=== PATIENT | female | born 1995 | race Caucasian/White ===

== ENCOUNTER → 2019-08-28 11:32 | Outpatient (BNVA) | payer SELFPAY | PROVIDERS: Family Provider Nurse Practitioner; PCP Nurse Practitioner; Visit Provider Nurse Practitioner Family | DX: E11.69 Type 2 diabetes mellitus with other specified complication (principal); R00.2 Palpitations | CPT/HCPCS: 80053; 80061; 83036; 84443; 85025 ==

== ENCOUNTER → 2019-09-04 15:05 | Outpatient (BNVA) | payer SELFPAY | PROVIDERS: Family Provider Nurse Practitioner; PCP Nurse Practitioner; Visit Provider Nurse Practitioner Family | DX: D64.9 Anemia, unspecified (principal); F41.8 Other specified anxiety disorders; E55.9 Vitamin D deficiency, unspecified; N92.1 Excessive and frequent menstruation with irregular cycle; E28.2 Polycystic ovarian syndrome; E11.69 Type 2 diabetes mellitus with other specified complication | CPT/HCPCS: 36415; 80053; 81001; 82306; 82607; 82746; 83540 ==

== ENCOUNTER → 2019-10-01 10:59 | Outpatient (BNVA) | payer OTHER, SELFPAY | PROVIDERS: Family Provider Nurse Practitioner; PCP Nurse Practitioner; Visit Provider Nurse Practitioner Family | DX: Z11.59 Encounter for screening for other viral diseases (principal); F41.8 Other specified anxiety disorders | CPT/HCPCS: 87635 ==

== ENCOUNTER → 2020-11-09 14:19 | Outpatient (BNVA) | payer MEDICAID, SELFPAY | PROVIDERS: Family Provider Nurse Practitioner; PCP Nurse Practitioner Family; Visit Provider Nurse Practitioner Family | DX: E11.69 Type 2 diabetes mellitus with other specified complication (principal); I10 Essential (primary) hypertension; D64.9 Anemia, unspecified; Z13.6 Encounter for screening for cardiovascular disorders; E55.9 Vitamin D deficiency, unspecified; R07.9 Chest pain, unspecified; E28.2 Polycystic ovarian syndrome; N80.9 Endometriosis, unspecified | CPT/HCPCS: 80053; 80061; 81003; 82306; 82607; 82728; 83036; 83550; 84439; 84443; 84481; 85025 ==

== ENCOUNTER → 2020-11-18 09:54 | Day surgery (SDC) | payer MEDICAID, SELFPAY ==
[2020-11-18 10:05] VITALS: BMI 51.3
[2020-11-18] MEDS: ferric carboxy (IVPB) 750 MG in sodium chloride 0.9% (100 ml) 100 ML 345 MG IV (10:23)
[2020-11-18 10:33] VITALS: BP 150/79; PULSE 80; RESP 18; TEMP 36.5; O2SAT 99
== END ==
PROVIDERS: PCP Nurse Practitioner Family; Visit Provider Nurse Practitioner Family
DX: D50.9 Iron deficiency anemia, unspecified (principal); K90.9 Intestinal malabsorption, unspecified
CPT/HCPCS: 96365; J1439

== ENCOUNTER → 2020-11-25 13:08 | Day surgery (SDC) | payer MEDICAID, SELFPAY ==
[2020-11-25 13:16] VITALS: BP 163/91; PULSE 68; RESP 16; TEMP 36.3; O2SAT 97
[2020-11-25] MEDS: ferric carboxy (IVPB) 750 MG in sodium chloride 0.9% (100 ml) 100 ML 345 MG IV (14:11)
== END ==
PROVIDERS: PCP Nurse Practitioner Family; Visit Provider Nurse Practitioner Family
DX: D50.9 Iron deficiency anemia, unspecified (principal); K90.9 Intestinal malabsorption, unspecified
CPT/HCPCS: 96365; J1439

== ENCOUNTER → 2021-08-10 13:58 | Outpatient (BNVA) | payer MEDICAID, SELFPAY | PROVIDERS: PCP Nurse Practitioner Family; Visit Provider Nurse Practitioner | DX: D64.9 Anemia, unspecified (principal); I10 Essential (primary) hypertension; E11.69 Type 2 diabetes mellitus with other specified complication; D50.9 Iron deficiency anemia, unspecified; F41.8 Other specified anxiety disorders | CPT/HCPCS: 80053; 83036; 84443; 85025 ==

== ENCOUNTER → 2021-10-13 11:19 | Outpatient (BNVA) | payer MEDICAID, SELFPAY | PROVIDERS: PCP Nurse Practitioner Family; Visit Provider Nurse Practitioner | DX: N92.1 Excessive and frequent menstruation with irregular cycle (principal) | CPT/HCPCS: 85025 ==

== ENCOUNTER → 2022-05-23 13:18 | Outpatient (BNVA) | payer MEDICAID, SELFPAY | PROVIDERS: PCP Nurse Practitioner Family; Visit Provider Obstetrics & Gynecology | DX: E28.2 Polycystic ovarian syndrome (principal) | CPT/HCPCS: 83036; 83525; 84443; 85025 ==

== ENCOUNTER → 2022-06-08 14:58 | Outpatient (BNVA) | payer MEDICAID, SELFPAY | PROVIDERS: PCP Nurse Practitioner Family; Visit Provider Obstetrics & Gynecology | DX: N93.9 Abnormal uterine and vaginal bleeding, unspecified (principal); E28.2 Polycystic ovarian syndrome | CPT/HCPCS: 76830; 84443 ==

== ENCOUNTER 2022-08-02 08:43 | Day surgery (SDC) | payer MEDICAID, SELFPAY ==
[2022-08-01 11:45] VITALS: BMI 53.9
[2022-08-02] VITALS (10 sets, daily range): BP systolic 114–149; BP diastolic 64–125; PULSE 70–97; RESP 14–18; TEMP 36.2–36.4; O2SAT 93–100
[2022-08-02] MEDS: sodium chloride 0.9% 1,000 ML 30 ML IV (09:00)
[2022-08-02 09:43] LABS: OR HCG Qualitative Urine Negative (Negative)
--- NOTE | 2022-08-02 09:44 | W.PM.OPSUD ---
Surgery/Procedure H&P Update DATE OF PROCEDURE: August 02, 2022 DATE H&P PERFORMED: 07/29/22 H&P UPDATE INFORMATION: I have reviewed H&P completed within last 30 days, I have examined patient prior to procedure and No changes to prior documentation PREOP DIAGNOSIS: AUB, anemia PLANNED PROCEDURE: Operation Date: 08/02/22 10:15 Proposed Procedures p Hysteroscopy, dilation and curettage with Myosure [id number], N93.9(Not Applicable) - Shanell Romero MD s Dilation And Curettage (D&C)(Not Applicable) - Shanell Romero MD Related Problem List Diagnoses (1) Abnormal uterine bleeding (AUB):
[2022-08-02] MEDS: ceFAZolin 3,000 MG in sodium chloride 0.9% (100 ml) 100 ML 200 MG IV (10:06)
--- NOTE | 2022-08-02 11:19 | PM.OP ---
Operative Report Date of procedure: August 02, 2022 Pre-op diagnosis: Preop Diagnosis AUB, anemia Post-op diagnosis: same Post-op findings: 7 week sized uterus with excessive tissue. Procedure done: hysteroscopy, dilation and curettage with myosure Specimens removed/disposition: endometrial curettings to pathology Surgeon: Shanell Romero Anesthesia: General Estimated blood loss (mL): 2 IV fluids (mL): 500 Complications: none Findings: 7 week sized uterus with excessive tissue 315 ml of hysteroscopy deficit Condition: stable Disposition: PACU Procedure: The patient was taken to the operating room where monitored anesthesia was administered and to be adequate. She was prepped and draped in the normal sterile fashion in the dorsal lithotomy position in Glenn stirps. A weighted speculum was placed into the vagina and the anterior lip of the cervix grasped with a single-tooth tenaculum. The uterus was sounded to 7 cm. The cervix was dilated to 16 [place]. The hysteroscope was advanced into the endometrial cavity. There was excessive tissue visualized. The MyoSure device was activated and the tissue was removed. Pictures were taken pre and post procedure. All instruments were removed. The patient tolerated the procedure well. Sponge lap and needle counts were correct x3. She was taken to the recovery room in stable condition.
--- NOTE | 2022-08-02 11:20 | ANES.PREANE2 ---
Pre-Anesthetic Assessment Height/Weight: Height 1.73 m Weight 161.025 kg Temp Pulse Resp BP Pulse Ox O2 Del Method 97.5 F L 97 18 149/125 97 Room Air 08/02/22 09:05 08/02/22 09:05 08/02/22 09:05 08/02/22 09:05 08/02/22 09:05 08/02/22 09:07 Preop Diagnosis: AUB, anemia Operation Date: 08/02/22 10:15 Proposed Procedures p Hysteroscopy, dilation and curettage with Myosure 11927,[id number], N93.9(Not Applicable) - Shanell Romero MD s Dilation And Curettage (D&C)(Not Applicable) - Shanell Romero MD Familial anesthetic complications: none Was Beta Bryon taken within 24 hours: Yes Was Clonidine taken within 24 hours: N/A Last intake: Intake Last Liquid Date 08/01/22 Last Liquid Time 22:00 Last Solid Date 08/01/22 Last Solid Time 20:00 Social Tobacco and No alcohol Exam alert, oriented x 3 and regular rate & rhythm Airway Submandibular: within normal limits Cervical ROM: within normal limits Mallampati: Class II Dentition: full CV/HEM Anemia and Hypertension Metabolic Diabetes Mellitus and Morbid Obesity PCOS Neuropsych Anxiety and Depression Anesthetic Plan ASA status: 3 Anesthesia: General Medications/Allergies Home Medications Medication Instructions Recorded Confirmed Last Taken Type metoprolol tartrate 50 mg tablet 50 mg PO BID 30 days #60 tabs 08/12/21 08/01/22 08/01/22 Rx buspirone 5 mg tablet 5 mg PO BID 05/23/22 08/01/22 08/01/22 History ferrous sulfate 325 mg (65 mg 325 mg PO DAILY 05/23/22 08/01/22 08/01/22 History iron) tablet prazosin 1 mg capsule 1 mg PO BID 05/23/22 08/01/22 08/01/22 History sertraline 100 mg tablet 100 mg PO DAILY 05/23/22 08/01/22 08/01/22 History trazodone 50 mg tablet 25 mg PO DAILY 05/23/22 08/01/22 08/01/22 History Allergies Allergy/AdvReac Type Severity Reaction Status Date / Time amoxicillin AdvReac Diarrhea Verified 07/29/22 07:56 PENDING SALE TO [facility] Anesthesia Medical History Anemia Chest pain Depression with anxiety Endometriosis Essential hypertension Hypertension screen Iron deficiency anemia Malabsorption Metrorrhagia PCOS (polycystic ovarian syndrome) Vitamin D deficiency Family History Family/Other Breast cancer maternal aunt Colon cancer maternal aunt Heart disease maternal aunt Father Diabetes Hypertension Mother Hypertension Heart disease Grandmother Heart disease maternal Grandfather Heart disease maternal Denies family history of Ovarian cancer Hypercholesteremia Uterine cancer Thyroid disease Stroke Female Reproductive History Date of last menstrual period: 06/04/22 Data Anesthesia Cardiac Studies: No Data to Display
--- NOTE | 2022-08-02 11:28 | PM.DCS ---
Discharge Providers Date of Admission: 08/02/22 Date of Discharge: August 02, 2022 Attending Provider at Admission: Nick Attending Provider at Discharge: Shanell Romero MD Primary Care Provider: Kinsey Griggs Diagnoses at Discharge Discharge Diagnosis (1) Abnormal uterine bleeding (AUB): Status: Acute Reason for Visit Reason for Visit: [id number]; N93.9 Hospital Course Hospital Course The patient was admitted for surgery. She did well postoperatively and was ready for discharge. Discharge Data Studies Completed and Pending Pending at discharge Category Date Time Status Pathology: Surgical [PTH] Routine Pth 08/02/22 10:45 Ordered Laboratory Results Urine HCG, Qual Negative (Negative) 08/02/22 08:57 Vitals Last Vital Signs Temp 97.2 F L 08/02/22 11:24 Pulse 76 08/02/22 11:24 Resp 18 08/02/22 11:24 BP 124/82 08/02/22 11:24 Pulse Ox 97 08/02/22 11:24 O2 Del Method Room Air 08/02/22 11:24 O2 Flow Rate 3 08/02/22 11:09 Discharge Plan Discharge Patient Disposition: Home Condition: Stable Prescriptions: Continued buspirone 5 mg tablet 5 mg PO BID ferrous sulfate 325 mg (65 mg iron) tablet 325 mg PO DAILY sertraline 100 mg tablet 100 mg PO DAILY prazosin 1 mg capsule 1 mg PO BID trazodone 50 mg tablet 25 mg PO DAILY metoprolol tartrate 50 mg tablet 50 mg PO BID 30 Days Qty: 60 5RF Discharge Orders: Discharge Order (Routine); Ordered 08/02/22 Ordered By: Shanell Romero Discharge Attestations Time Spent in Discharge Care*: less than 30 min Quality Metrics Clinical Quality Measures [ No reported AMI, CVA or VTE this stay] Coding Level of Care Code Acute Code for Chg Fwd Diagnoses Abnormal uterine bleeding (AUB) N93.9
--- NOTE | 2022-08-02 14:43 | ANE.PACU2 ---
Inpatient post-anesthesia follow up: Airway intact: Yes Vital signs: Temperature 97.2 F Pulse Rate 72 Respiratory Rate 18 Blood Pressure 126/78 Pulse Oximetry 95 Oxygen Delivery Me thod Room Air Oxygen Flow Rate 3 Fraction of Inspir ed Oxygen Hydration adequate: Yes Nausea and vomiting: No Pain level: 3 Mental status: Baseline
== END 2022-08-02 12:10 | disposition home or self-care (01) ==
PROVIDERS: PCP Nurse Practitioner Family; Visit Provider Obstetrics & Gynecology
PROC: 0UDB8ZZ Extraction of Endometrium, Via Natural or Artificial Opening Endoscopic (ICD-10-PCS; CPT 58558; principal; 2022-08-02 10:05)
PROC: (CPT 58120; 2022-08-02 10:05)
DX: N93.9 Abnormal uterine and vaginal bleeding, unspecified (principal); D64.9 Anemia, unspecified; I10 Essential (primary) hypertension; E66.01 Morbid (severe) obesity due to excess calories; Z68.43 Body mass index [BMI] 50.0-59.9, adult; E28.2 Polycystic ovarian syndrome; F41.9 Anxiety disorder, unspecified; F32.A Depression, unspecified
CPT/HCPCS: 58558; 81025; 84703; 88305; J0330; J0690; J1100; J2405; J2704; J3010; J7030

== ENCOUNTER → 2022-08-18 14:20 | Outpatient (BNVA) | payer MEDICAID, SELFPAY | PROVIDERS: PCP Nurse Practitioner Family; Visit Provider Obstetrics & Gynecology | DX: Z01.419 Encounter for gynecological examination (general) (routine) without abnormal findings (principal) | CPT/HCPCS: 88175 ==

== ENCOUNTER 2023-10-14 21:49 | Emergency (ER) | payer MEDICAID, SELFPAY ==
[2023-10-14 21:50] VITALS: BP 167/83; PULSE 77; RESP 16; TEMP 36.7; O2SAT 98; BMI 56.5
--- NOTE | 2023-10-14 21:56 | XRR_ITS ---
PROCEDURE INFORMATION: Exam: XR Chest Exam date and time: 10/14/2023 10:02 PM Age: 28 years old Clinical indication: Chest pressure; Patient HX: Chest pain; HTN; SOB TECHNIQUE: Imaging protocol: Radiologic exam of the chest. Views: 1 view. COMPARISON: No relevant prior studies available. FINDINGS: Lungs: The lungs are adequately expanded. No focal consolidations or pulmonary edema. Pleural spaces: No pleural effusions or pneumothorax. Heart/Mediastinum: No cardiomegaly. Bones/joints: No acute fractures. XR/XR chest 1V portable [id number] IMPRESSION: No acute pulmonary disease.
--- NOTE | 2023-10-14 21:57 | ECG_ITS ---
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 Measurements Intervals [place] Rate: 70 P: 40 OR: 186 QRS: 60 QRSD: 101 T: 52 QT: 380 QTc: 413 Interpretive Statements SINUS RHYTHM No previous ECG available for comparison Electronically Signed On 10-15-2023 7:58:41 CDT by Eleuterio Fabian M.D. [email or web address]
[2023-10-14 21:58] VITALS: BP 167/83; PULSE 71; RESP 18; TEMP 36.4; O2SAT 98
[2023-10-14 22:03] LABS: Basophils # 0.1 10^3/uL (0.0-0.1); Basophils % 0.8 %; Eosinophils # 0.2 10^3/uL (0.0-0.8); Eosinophils % 1.8 %; Lymphocytes # 3.7 10^3/uL (0.8-4.8); Lymphocytes % 30.7 %; Mean Corpuscular HGB Conc 30.8 g/dL (30-55); Mean Corpuscular Hemoglobin 24.9 pg (27-33); Mean Corpuscular Volume 80.7 fl (85-98); Mean Platelet Volume 11.4 fL (7.4-10.4); Monocytes # 0.5 10^3/uL (0.2-0.9); Monocytes % 4.3 %; Neutrophils # 7.42 10^3/uL (1.8-7.7); Nucleated Red Blood Cells % 0 %; Platelet Count 274 10^3/cmm (157-399); Red Blood Count 4.46 10^6/uL (3.85-5.65); Red Cell Distribution Width 15.9 % (12.1-15.1); White Blood Count 11.98 10^3/uL (3.29-11.43)
[2023-10-14] MEDS: ketorolac 30 mg/mL INJ 15 MG IVP (22:07)
[2023-10-14 22:27] LABS: Troponin(5th) Baseline < 6 ng/L (0-10)
[2023-10-14 22:30] LABS: Alanine Aminotransferase 21 U/L (0-33); Alkaline Phosphatase 98 U/L (35-105); Aspartate Amino Transferase 16 U/L (0-32); Blood Urea Nitrogen 8 mg/dL (6-20); Calcium 8.5 mg/dL (8.5-10.5); Carbon Dioxide 19 mmol/L (22-29); Chloride 105 mmol/L (98-107); Creatinine Clr Calc Pharmacy 199.9094; Globulin 3.1 g/dL (1.3-4.6); Glomerular Filtration Rate 99.6 mL/min (90-130); Glucose 101 mg/dL (65-115); Osmolality Calculated 284 mOsm/kg (285-295); Sodium 138 mmol/L (136-145); Total Bilirubin 0.3 mg/dL (0.15-1.2); Total Protein 7.1 g/dL (6.6-8.7)
[2023-10-14 22:46] VITALS: BP 151/82; PULSE 69; RESP 16; O2SAT 97
--- NOTE | 2023-10-14 23:26 | W.ED.CHESTPA ---
HPI - Chest Pain General: Chief Complaint: Chest Pain Stated Complaint: cp, sob, nausea, htn Time Seen by Provider: 10/14/23 21:50 History of Present Illness: Patient presents emerged part with complaint of chest pain. Patient was arguing with her boyfriend when the pain started. She states this started mid sternum and radiated to her back. She states pain has improved significantly since it started. She was given aspirin and nitro by EMS. Patient with no history of cardiac disease. [facility] ED PFSH: Medical History Iron deficiency anemia Endometriosis Essential hypertension PCOS (polycystic ovarian syndrome) Depression with anxiety Family History Family/Other Breast cancer maternal aunt Colon cancer maternal aunt Heart disease maternal aunt Father Diabetes Hypertension Mother Hypertension Heart disease Grandmother Heart disease maternal Grandfather Heart disease maternal Denies family history of Ovarian cancer Hypercholesteremia Uterine cancer Thyroid disease Stroke Female Reproductive History: Date of last menstrual period: 09/30/23 Physical Exam Chest: COMMONS NORMALS: normal inspection of the chest and normal palpation of entire chest wall Resp: COMMON NORMALS: normal respiratory effort Cardio: COMMON NORMALS: regular rate and regular rhythm RATE: regular rate RHYTHM: regular rhythm GI: COMMON NORMALS: Normal to inspection, nondistended, normoactive bowel sounds present and non-tender Course Vital Signs: Vital signs: Vital Signs Temperature 97.6 F 10/14/23 21:58 Pulse Rate 69 10/14/23 22:46 Respiratory Rate 16 10/14/23 22:46 Blood Pressure 151/82 10/14/23 22:46 Pulse Oximetry 97 10/14/23 22:46 Oxygen Delivery Me thod Room Air 10/14/23 22:46 MDM - Chest Pain Medical Decision Making Patient with no significant abnormality noted on labs or imaging. Troponin is negative x 2. EKG with nonspecific ST and T wave changes. Chest x-ray with no acute disease. Patient is PERC negative so doubt PE. Patient's pain has improved and patient was very few risk factors other than being overweight for ACS. Suspect patient's pain secondary to anxiety from when she was arguing with her boyfriend. Discussed with patient to follow-up with PCP. Lab Data 10/14/23 21:00 10/14/23 21:00 Radiology Impressions Chest X-Ray 10/14/23 21:56 IMPRESSION: No acute pulmonary disease. Laboratory Results WBC 11.98 10^3/uL (3.29-11.43) H 10/14/23 21:00 RBC 4.46 10^6/uL (3.85-5.65) 10/14/23 21:00 Hgb 11.10 g/dL (11.27-16.99) L 10/14/23 21:00 Hct 36.0 % (36-47) 10/14/23 21:00 MCV 80.7 fl (85-98) L 10/14/23 21:00 MCH 24.9 pg (27-33) L 10/14/23 21:00 MCHC 30.8 g/dL (30-55) 10/14/23 21:00 RDW 15.9 % (12.1-15.1) H 10/14/23 21:00 Plt Count 274 10^3/cmm (157-399) 10/14/23 21:00 MPV 11.4 fL (7.4-10.4) H 10/14/23 21:00 Neut % (Auto) 62.0 % 10/14/23 21:00 Lymph % (Auto) 30.7 % 10/14/23 21:00 [place] % (Auto) 4.3 % 10/14/23 21:00 Eos % (Auto) 1.8 % 10/14/23 21:00 Baso % (Auto) 0.8 % 10/14/23 21:00 Neut # (Auto) 7.42 10^3/uL (1.8-7.7) 10/14/23 21:00 Lymph # (Auto) 3.7 10^3/uL (0.8-4.8) 10/14/23 21:00 [place] # (Auto) 0.5 10^3/uL (0.2-0.9) 10/14/23 21:00 Eos # (Auto) 0.2 10^3/uL (0.0-0.8) 10/14/23 21:00 Baso # (Auto) 0.1 10^3/uL (0.0-0.1) 10/14/23 21:00 Nucleated RBC % (auto) 0 % 10/14/23 21:00 Nucleated RBCs # 0.0 /100WBC 10/14/23 21:00 Sodium 138 mmol/L (136-145) 10/14/23 21:00 Potassium 4.0 mmol/L (3.5-5.1) 10/14/23 21:00 Chloride 105 mmol/L (98-107) 10/14/23 21:00 Carbon Dioxide 19 mmol/L (22-29) L 10/14/23 21:00 Anion Gap 18.0 (5-19) 10/14/23 21:00 BUN 8 mg/dL (6-20) 10/14/23 21:00 Creatinine 0.7 mg/dL (0.5-0.9) 10/14/23 21:00 GFR Calculation 99.6 mL/min (90-130) 10/14/23 21:00 Glucose 101 mg/dL (65-115) 10/14/23 21:00 Calculated Osmolality 284 mOsm/kg (285-295) L 10/14/23 21:00 Calcium 8.5 mg/dL (8.5-10.5) 10/14/23 21:00 Total Bilirubin 0.3 mg/dL (0.15-1.2) 10/14/23 21:00 AST 16 U/L (0-32) 10/14/23 21:00 ALT 21 U/L (0-33) 10/14/23 21:00 Alkaline Phosphatase 98 U/L (35-105) 10/14/23 21:00 Troponin T Baseline < 6 ng/L (0-10) 10/14/23 21:00 Troponin T 120 Minute 6.00 ng/L (0-10) 10/14/23 23:43 Delta Troponin T 0.80602 ABS# (0-10) 10/14/23 23:43 Total Protein 7.1 g/dL (6.6-8.7) 10/14/23 21:00 Albumin 4.0 g/dL (3.5-5.2) 10/14/23 21:00 Globulin 3.1 g/dL (1.3-4.6) 10/14/23 21:00 All radiology interpretation(s) finalized by discharge Discharge Plan Discharge Patient Disposition: Home Clinical Impression: Atypical chest pain Condition: Stable Prescriptions: No Action buspirone 5 mg tablet 5 mg PO BID ferrous sulfate 325 mg (65 mg iron) tablet 325 mg PO DAILY sertraline 100 mg tablet 100 mg PO DAILY prazosin 1 mg capsule 1 mg PO BID trazodone 50 mg tablet 25 mg PO DAILY metoprolol tartrate 50 mg tablet 50 mg PO BID 30 Days Qty: 60 5RF medroxyprogesterone [Provera] 10 mg tablet 10 mg PO DAILY Qty: 10 12RF metronidazole 500 mg tablet 500 mg PO BID Qty: 14 0RF cephalexin 500 mg capsule 500 mg PO TID Qty: 30 0RF Discharge Orders: Discharge ED (Routine); Ordered 10/15/23 Ordered By: Horacio Kelley Referrals: Kinsey Griggs [Primary Care Provider] - Discharge Diet: Usual diet Discharge Activity: Resume usual activity Patient Instructions: Opioid Safety, Pain Management Activity Restrictions/Additional Instructions: Follow-up with primary care physician for further evaluation and treatment. Coding Level of Care Code ED Hot Car Operator for Aydin Ybarra
[2023-10-15 00:04] LABS: Troponin 5 2HR Delta 0.00001 ABS# (0-10)
[2023-10-15 00:44] VITALS: BP 90/65; PULSE 64; RESP 17; O2SAT 97
[2023-10-15 00:45] VITALS: BP 90/65; PULSE 64; RESP 17; TEMP 36.4; O2SAT 97
== END 2023-10-15 00:56 | disposition home or self-care (01) ==
PROVIDERS: Emergency Provider Emergency Medicine; PCP Nurse Practitioner Family
DX: R07.89 Other chest pain (principal); I10 Essential (primary) hypertension
CPT/HCPCS: 36415; 71045; 80053; 84484; 85025; 93005; 96374; 99285; J1885

== ENCOUNTER 2024-02-16 11:32 | Emergency (ER) | payer MEDICAID, SELFPAY ==
--- NOTE | 2024-02-16 11:33 | USR_ITS ---
PROCEDURE INFORMATION: Exam: US Abdomen; Limited Exam date and time: 02/16/2024 11:59 AM Age: 29 years old Clinical indication: Abdominal pain; Generalized; Additional info: Be here ( pain TECHNIQUE: Imaging protocol: Real time ultrasound of the abdomen with image documentation. Limited exam focused on the region of clinical interest. COMPARISON: US transvaginal [id number] 06/08/2022 3:07 PM FINDINGS: There is diffuse hepatic echogenicity present corresponding to hepatic steatosis.. The liver span is 18 cm consistent with hepatomegaly. No focal hepatic lesions are present. Gallbladder shows multiple mobile shadowing gallstones. GB wall 3 mm. Common bile duct 6 mm. The right kidney does not show focal abnormality. Right kidney measures 12.4 cm x 6.4 cm x 5.6 cm US/US gall bladder [id number] IMPRESSION: 1. Hepatomegaly and hepatic steatosis. 2. Cholelithiasis 3. Otherwise negative sonogram
[2024-02-16 11:46] VITALS: BP 172/107; PULSE 89; RESP 17; TEMP 36.7; O2SAT 97; BMI 56.2
--- NOTE | 2024-02-16 14:38 | W.ED.ABDPA2 ---
HPI - Abdominal Pain General: Chief Complaint: Abdominal Pain Stated Complaint: gallbladder removal (doc reff), sever pain Time Seen by Provider: 02/16/24 14:12 History of Present Illness: 29-year-old female presents emergency room with complaints of right upper quadrant abdominal pain intermittent for the last 2 months she has not noticed anything that he exacerbates or relieves it. She had a ultrasound done she has a written report with her was done at an outside clinic they states she had acute cholecystitis based on that ultrasound of the dilation or common bile duct and cholelithiasis. Ultrasound done here today does not have a similar finding we do not see the bile duct as dilated there is no sign of acute cholecystitis on the ultrasound done today but there are gallstones which were also seen on the previous ultrasound. She has not had any fever sweats chills she does have some diarrhea associated with these episodes. Nurse practitioner that she sees told her that she was sent to the emergency room to have her gallbladder removed. Associated Symptoms: Denies chills, dysuria and fever(s) Related Data Date of Last Menstrual Period: 01/11/24 Home Medications Medication Instructions Recorded Confirmed buspirone 5 mg tablet 5 mg PO BID 05/23/22 08/18/22 ferrous sulfate 325 mg (65 mg 325 mg PO DAILY 05/23/22 08/18/22 iron) tablet prazosin 1 mg capsule 1 mg PO BID 05/23/22 08/18/22 sertraline 100 mg tablet 100 mg PO DAILY 05/23/22 08/18/22 trazodone 50 mg tablet 25 mg PO DAILY 05/23/22 08/18/22 Previous Rx's Medication Instructions Recorded metoprolol tartrate 50 mg tablet 50 mg PO BID 30 days #60 tabs 08/12/21 cephalexin 500 mg capsule 500 mg PO TID #30 caps 08/11/22 medroxyprogesterone 10 mg tablet 10 mg PO DAILY #10 tabs 08/11/22 (Provera) metronidazole 500 mg tablet 500 mg PO BID #14 tabs 08/11/22 hydrocodone 5 mg-acetaminophen 325 1 tab PO Q6H PRN pain #20 tabs 02/16/24 mg tablet promethazine 25 mg tablet 25 mg PO Q6H PRN nausea and 02/16/24 vomiting #20 tabs Allergies Allergy/AdvReac Type Severity Reaction Status Date / Time amoxicillin AdvReac Diarrhea Verified 08/18/22 13:45 Review of Systems Const: Denies: fever(s) or chills Card: Denies: chest pain Resp: Denies: dyspnea GI: Denies: abdominal pain : Denies: dysuria, urinary frequency or urinary urgency Musc: Denies: neck pain or back pain Skin/Breast: Denies: rash PFSH ED PFSH: Medical History Iron deficiency anemia Endometriosis Essential hypertension PCOS (polycystic ovarian syndrome) Depression with anxiety Family History Family/Other Breast cancer maternal aunt Colon cancer maternal aunt Heart disease maternal aunt Father Diabetes Hypertension Mother Hypertension Heart disease Grandmother Heart disease maternal Grandfather Heart disease maternal Denies family history of Ovarian cancer Hypercholesteremia Uterine cancer Thyroid disease Stroke Female Reproductive History: Date of last menstrual period: 01/11/24 Physical Exam Const: COMMON NORMALS: no acute distress GENERAL APPEARANCE: cooperative and comfortable ORIENTATION/CONSCIOUSNESS: Yes awake, Yes oriented to person, Yes oriented to place and Yes oriented to time HENMT: COMMON NORMALS: normocephalic, atraumatic and hearing grossly normal bilaterally HEAD & SCALP: normocephalic and atraumatic Resp: COMMON NORMALS: normal respiratory effort, No retractions, No use of accessory muscles and clear to auscultation bilaterally AUSCULTATION: clear to auscultation bilaterally Cardio: COMMON NORMALS: regular rate, regular rhythm and No murmurs present (Cardio) RATE: regular rate RHYTHM: regular rhythm GI: COMMON NORMALS: Soft to palpation and No hepatosplenomegaly present AUSCULTATION: Yes normoactive bowel sounds PALPATION: Yes Soft to palpation, No Tenderness to palpation present (GI), No Guarding due to palpation present (GI) and Yes No hepatosplenomegaly present Extremity: COMMON NORMALS: normal to inspection, capillary refill normal, no clubbing, cyanosis or edema, no calf tenderness and no pedal edema Neuro: SENSORIUM/ORIENTATION: Yes oriented to person, Yes oriented to place and Yes oriented to time Skin: COMMON NORMALS: no rashes or lesions noted GENERAL SKIN EXAM: no rashes or lesions noted Course Vital Signs: Vital signs: Vital Signs Temperature 98.1 F 02/16/24 11:46 Pulse Rate 76 02/16/24 16:37 Respiratory Rate 17 02/16/24 11:46 Blood Pressure 151/97 02/16/24 16:37 Pulse Oximetry 96 02/16/24 16:37 Oxygen Delivery Me thod Room Air 02/16/24 15:20 MDM - Abdominal Pain Medical Decision Making Reviewed ultrasound shows cholelithiasis but no evidence of acute cholecystitis no leukocytosis no elevation of liver functions. Discussed with the patient what do believe her symptoms are suggestive of biliary colic and she likely will need cholecystectomy at this point is not emergent. Will discharge patient home discussed dietary adjustments to avoid exacerbating but her symptoms. Hydrocodone and promethazine given make appointment for follow-up with general surgery. If symptoms change develops fever or persistent nausea vomiting return Medical Records I reviewed the patient's medical records. Lab Data I reviewed the patient's lab results. 02/16/24 14:28 02/16/24 14:28 Labs/Radiology: Radiology Impressions Gallbladder Ultrasound 02/16/24 11:33 IMPRESSION: 1. Hepatomegaly and hepatic steatosis. 2. Cholelithiasis 3. Otherwise negative sonogram Laboratory Results WBC 10.52 10^3/uL (3.29-11.43) 02/16/24 14:28 RBC 5.29 10^6/uL (3.85-5.65) 02/16/24 14:28 Hgb 12.30 g/dL (11.27-16.99) 02/16/24 14:28 Hct 42.1 % (36-47) 02/16/24 14:28 MCV 79.6 fl (85-98) L 02/16/24 14:28 MCH 23.3 pg (27-33) L 02/16/24 14:28 MCHC 29.2 g/dL (30-55) L 02/16/24 14:28 RDW 16.1 % (12.1-15.1) H 02/16/24 14:28 Plt Count 264 10^3/cmm (157-399) 02/16/24 14:28 MPV 10.9 fL (7.4-10.4) H 02/16/24 14:28 Neut % (Auto) 61.1 % 02/16/24 14:28 Lymph % (Auto) 31.8 % 02/16/24 14:28 Mellette % (Auto) 3.6 % 02/16/24 14:28 Eos % (Auto) 2.3 % 02/16/24 14:28 Baso % (Auto) 0.7 % 02/16/24 14:28 Neut # (Auto) 6.43 10^3/uL (1.8-7.7) 02/16/24 14:28 Lymph # (Auto) 3.4 10^3/uL (0.8-4.8) 02/16/24 14:28 Mellette # (Auto) 0.4 10^3/uL (0.2-0.9) 02/16/24 14:28 Eos # (Auto) 0.2 10^3/uL (0.0-0.8) 02/16/24 14:28 Baso # (Auto) 0.1 10^3/uL (0.0-0.1) 02/16/24 14:28 Nucleated RBC % (auto) 0 % 02/16/24 14:28 Nucleated RBCs # 0.0 /100WBC 02/16/24 14:28 Sodium 137 mmol/L (136-145) 02/16/24 14:28 Potassium 3.8 mmol/L (3.5-5.1) 02/16/24 14:28 Chloride 102 mmol/L (98-107) 02/16/24 14:28 Carbon Dioxide 25 mmol/L (22-29) 02/16/24 14:28 Anion Gap 13.8 (5-19) 02/16/24 14:28 BUN 8 mg/dL (6-20) 02/16/24 14:28 Creatinine 0.7 mg/dL (0.5-0.9) 02/16/24 14:28 GFR Calculation 98.9 mL/min (90-130) 02/16/24 14:28 Glucose 90 mg/dL (65-115) 02/16/24 14:28 Calculated Osmolality 282 mOsm/kg (285-295) L 02/16/24 14:28 Calcium 9.0 mg/dL (8.5-10.5) 02/16/24 14:28 Total Bilirubin 0.6 mg/dL (0.15-1.2) 02/16/24 14:28 AST 18 U/L (0-32) 02/16/24 14:28 ALT 18 U/L (0-33) 02/16/24 14:28 Alkaline Phosphatase 95 U/L (35-105) 02/16/24 14:28 Total Protein 7.4 g/dL (6.6-8.7) 02/16/24 14:28 Albumin 3.9 g/dL (3.5-5.2) 02/16/24 14:28 Globulin 3.5 g/dL (1.3-4.6) 02/16/24 14:28 Lipase 30 U/L (13-60) 02/16/24 14:28 HCG, Qual Negative (Negative) 02/16/24 14:28 Urine Color Yellow (Yellow) 02/16/24 15:32 Urine Appearance Clear (CLEAR) 02/16/24 15:32 Urine pH 6.5 (5-7) 02/16/24 15:32 Ur Specific [place] 1.019 (1.005-1.030) 02/16/24 15:32 Urine Protein Negative (Negative) 02/16/24 15:32 Urine Glucose (UA) Negative (Normal) 02/16/24 15:32 Urine Ketones Negative (Negative) 02/16/24 15:32 Urine Blood Negative (Negative) 02/16/24 15:32 Urine Nitrate Negative (Negative) 02/16/24 15:32 Urine Bilirubin Negative (Negative) 02/16/24 15:32 Urine Urobilinogen 1.0 mg/dL (Negative) 02/16/24 15:32 Ur Leukocyte Esterase Negative (Negative) 02/16/24 15:32 Urine RBC 0-2 /hpf (0-2) 02/16/24 15:32 Urine WBC 0-5 /hpf (0-5) 02/16/24 15:32 Ur Squamous Epith Cells 6-10 /hpf (0-5) 02/16/24 15:32 Amorphous Sediment Not Reportable 02/16/24 15:32 Urine Bacteria 1+ /hpf (NONE) H 02/16/24 15:32 Hyaline Casts 1.65 /lpf 02/16/24 15:32 All radiology interpretation(s) finalized by discharge Discharge Plan Discharge Patient Disposition: Home Clinical Impression: Cholelithiasis Condition: Stable Prescriptions: New hydrocodone-acetaminophen 5-325 mg tablet 1 tab PO Q6H PRN (Reason: pain) Qty: 20 0RF promethazine 25 mg tablet 25 mg PO Q6H PRN (Reason: nausea and vomiting) Qty: 20 0RF No Action buspirone 5 mg tablet 5 mg PO BID ferrous sulfate 325 mg (65 mg iron) tablet 325 mg PO DAILY sertraline 100 mg tablet 100 mg PO DAILY prazosin 1 mg capsule 1 mg PO BID trazodone 50 mg tablet 25 mg PO DAILY metoprolol tartrate 50 mg tablet 50 mg PO BID 30 Days Qty: 60 5RF medroxyprogesterone [Provera] 10 mg tablet 10 mg PO DAILY Qty: 10 12RF metronidazole 500 mg tablet 500 mg PO BID Qty: 14 0RF cephalexin 500 mg capsule 500 mg PO TID Qty: 30 0RF Discharge Orders: Discharge ED (Routine); Ordered 02/16/24 Ordered By: Julito Lujan Referrals: Kinsey Griggs [Primary Care Provider] - Discharge Diet: As Directed Discharge Activity: Increase activity as tolerated Patient Instructions: Cholelithiasis, Biliary Colic (ED), Gallstones (ED), Opioid Safety, Pain Management Activity Restrictions/Additional Instructions: Thank you for choosing [facility] for your healthcare needs today. It is very important that you follow up as instructed or that you return to the Emergency Department should you have concerns or if your condition changes or worsens in any way. You are seen in the emergency room with right upper quadrant abdominal pain ultrasound does show that you have gallbladder stones your history is consistent with biliary colic. Your liver functions and your white count are normal however there is no sign of acute cholecystitis. Suspect that ultimately you will need to have a cholecystectomy which is not urgent or emergent at this time. Will make arrangements for you to follow-up with general surgery so they can review this with you and look at treatment options. Coding Level of Care Code ED Optical Glass Wet Inspector for Aydin Ybarra
[2024-02-16 14:43] LABS: Basophils # 0.1 10^3/uL (0.0-0.1); Basophils % 0.7 %; Eosinophils # 0.2 10^3/uL (0.0-0.8); Eosinophils % 2.3 %; Hematocrit 42.1 % (36-47); Lymphocytes # 3.4 10^3/uL (0.8-4.8); Lymphocytes % 31.8 %; Mean Corpuscular HGB Conc 29.2 g/dL (30-55); Mean Corpuscular Hemoglobin 23.3 pg (27-33); Mean Corpuscular Volume 79.6 fl (85-98); Mean Platelet Volume 10.9 fL (7.4-10.4); Monocytes # 0.4 10^3/uL (0.2-0.9); Monocytes % 3.6 %; Neutrophils # 6.43 10^3/uL (1.8-7.7); Neutrophils % 61.1 %; Nucleated Red Blood Cells % 0 %; Platelet Count 264 10^3/cmm (157-399); Red Blood Count 5.29 10^6/uL (3.85-5.65); Red Cell Distribution Width 16.1 % (12.1-15.1); White Blood Count 10.52 10^3/uL (3.29-11.43)
[2024-02-16 15:02] LABS: Alanine Aminotransferase 18 U/L (0-33); Albumin Level 3.9 g/dL (3.5-5.2); Alkaline Phosphatase 95 U/L (35-105); Anion Gap 13.8 (5-19); Aspartate Amino Transferase 18 U/L (0-32); Blood Urea Nitrogen 8 mg/dL (6-20); Carbon Dioxide 25 mmol/L (22-29); Chloride 102 mmol/L (98-107); Creatinine Clr Calc Pharmacy 197.4453; Globulin 3.5 g/dL (1.3-4.6); Glomerular Filtration Rate 98.9 mL/min (90-130); Glucose 90 mg/dL (65-115); HCG, Serum Qual Negative (Negative); Lipase 30 U/L (13-60); Osmolality Calculated 282 mOsm/kg (285-295); Potassium 3.8 mmol/L (3.5-5.1); Sodium 137 mmol/L (136-145); Total Bilirubin 0.6 mg/dL (0.15-1.2); Total Protein 7.4 g/dL (6.6-8.7)
[2024-02-16 15:20] VITALS: BP 153/106; PULSE 80; O2SAT 91
[2024-02-16 15:39] LABS: Bilirubin Urine Negative (Negative); Blood Urine Negative (Negative); Glucose Urine UA Negative (Normal); Ketones Urine Negative (Negative); Leukocyte Esterase Urine Negative (Negative); Nitrate Urine Negative (Negative); Protein Urine Negative (Negative); Specific Gravity, Urine 1.019 (1.005-1.030); Urine Appearance Clear (CLEAR); Urine Color Yellow (Yellow); pH Urine 6.5 (5-7)
[2024-02-16 15:44] LABS: Add Urine Microscopic? YES; Bacteria Urine 1+ /hpf; Hyaline Casts Urine 1.65 /lpf; RBC Urine 0-2 /hpf (0-2); WBC Urine 0-5 /hpf (0-5)
[2024-02-16 16:37] VITALS: BP 151/97; PULSE 76; O2SAT 96
== END 2024-02-16 16:38 | disposition home or self-care (01) ==
PROVIDERS: Emergency Medicine; Emergency Provider Family Medicine; PCP Nurse Practitioner Family
DX: K80.20 Calculus of gallbladder without cholecystitis without obstruction (principal)
CPT/HCPCS: 36415; 76705; 80053; 81001; 83690; 84703; 85025; 99284

== ENCOUNTER 2024-11-20 16:56 | Emergency (ER) | payer MEDICAID, SELFPAY ==
--- OUTSIDE RECORDS SUMMARY | 2024-11-13 10:00 | XMS_ITS | Encounter Summary ---
Author Organization [facility] Address [address] [place] [address] Care Team Providers Care Dump Attendant Name Role Phone Xenia Iverson MD Primary Care Provider [phone] Reason for Visit * Reason Comments Dental Pain Right side Encounter Details Date Type Department Care Team ([facility] st Contact Info) Description 11/13/2024 10:00 AM CDT Office Visit [facility] Medicine [address] [phone] Beth Calderon FNP [address] [place] [phone] Dental infection (Primary Dx); Wheezing; Declined influenza vaccine Social History Tobacco Use Types Packs/Day Years Used Date Smoking Tobacco: Every Day Cigarettes 1 13.7 Started: 03/13/2015; Last attempted to quit: 07/14/2014 Smokeless Tobacco: Never Tobacco Cessation:Ready to Q uit: No; Counseling Given: Yes Alcohol Use Standard Drinks/Week Comments Not Currently 0 (1 standard drink = 0.6 oz pur e alcohol) Feeling Safe Answer Date Recorded Are you in a relationship wi th someone who hurts you emotionally and/or physically? No 08/13/2024 Food Insecurity Answer Date Recorded Patient needs follow up regardin 07/03/2024 Transportation Needs Answer Date Record ed Patient needs follow up regardin 07/03/2024 Housing Stability Answer Date Recorded Social/Environmental Concerns No concerns Utility Needs Answer Date Recorded Patient needs follow up regardin 07/03/2024 Comments No Sex and Gender Information Value Date Recorded Sex Assigned at Not on file Legal Sex Female 2:20 AM FAMILY SOCIOLOGIST Gender Identity Not on file Sexual Orientation Not on file documented as of this encounter Last Filed Vital Signs Vital Sign Reading Time Taken Comments Blood Pressure 132/80 11/13/2024 10:03 AM CDT Pulse 90 11/13/2024 10:03 AM CDT Temperature 36.4 C (97.6 F) 11/13/2024 10:03 AM CDT Respiratory Rate 20 11/13/2024 10:0 3 AM CDT Oxygen Saturation 97% 11/13/2024 10: 03 AM CDT Inhaled Oxygen Concentration - - Weight 177.3 kg (390 lb 12.8 oz) 2024 10:03 AM CDT Height 172.7 cm (5' 8 ) 11/13/2024 10:0 3 AM CDT Body Mass Index 59.42 11/13/2024 10:03 AM CDT documented in this encounter Progress Notes * Beth Calderon FNP - 11/13/2024 10:35 AM CDT HISTORY OF PRESENT ILLNESS: Chief Complaint Patient presents with Dental Pain Right side Subjective History of Present Illness The patient is a 29-year-old female who presents to the clinic for concerns of dental infection. She has been experiencing mouth pain for approximately a week, which has escalated to include headaches, earaches, and facial swelling. The discomfort is so intense that it disrupts her sleep. She also reports two broken teeth. Despite attempts to alleviate the pain with Tylenol and ibuprofen, she has found no relief. She has not yet scheduled a dentist appointment due to difficulties in finding one that accepts her insurance. Over the weekend, she attended a family reunion but was unable to participate due to the pain. Additionally, she mentions that she has run out of her albuterol inhaler and does not have any refills left. She has started experiencing wheezing again. Sleep: Reports disrupted sleep due to pain PAST SURGICAL HISTORY: Gallbladder surgery REVIEW OF SYSTEMS Review of Systems Constitutional: Negative for activity change, appetite change and fever. HENT: Positive for dental problem, ear pain, facial swelling and sinus pain. Gastrointestinal: Negative for abdominal pain. Neurological: Positive for headaches. Negative for dizziness and light-headedness. Psychiatric/Behavioral: Positive for sleep disturbance. Objective PHYSICAL EXAM BP 132/80 Pulse 90 Temp 97.6 ??F (36.4 ??C) (Temporal) Resp 20 Ht 5' 8 (1.727 m) Wt (!) 177.3 kg (390 lb 12.8 oz) LMP 01/31/2024 (Approximate) SpO2 97% BMI 59.42 kg/m?? Physical Exam Vitals reviewed. Constitutional: General: She is not in acute distress. Appearance: Normal appearance. HENT: Head: Normocephalic and atraumatic. Right Ear: External ear normal. Left Ear: External ear normal. Eyes: Conjunctiva/sclera: Conjunctivae normal. Pulmonary: Effort: Pulmonary effort is normal. Musculoskeletal: General: Normal range of motion. Cervical back: Neck supple. Skin: General: Skin is warm. Findings: No rash. Neurological: Mental Status: She is alert and oriented to person, place, and time. Psychiatric: Mood and Affect: Mood normal. Behavior: Behavior normal. Results ASSESSMENT and PLAN: Orders Placed This Encounter ergocalciferol (VITAMIN D2) 50,000 unit capsule cephALEXin (KEFLEX) 500 mg capsule albuterol sulfate HFA 90 mcg/actuation aerosol inhaler Assessment & Plan 1. Dental infection: Acute. - Severe dental pain radiating to the head, ear, and face, accompanied by swelling and sleep disturbances. - Counseling on the use of clindamycin 300 mg four times daily for 10 days, with the option to reduce to three times daily if necessary. - Prescription for clindamycin 300 mg sent to pharmacy. - Encouraged to find a dentist who accepts her insurance to avoid recurrent antibiotic use. 2. Wheezing: Acute. - Refill for albuterol inhaler sent to pharmacy. Follow-up - Follow-up with a dentist to address dental issues and prevent recurrent antibiotic use. LARY Jones, 11/13/2024 10:49 AM The author of this note, patient (or authorized senior sales representative), and all other persons present consent to the audio recording of this visit for charting documentation purposes. This note was automatically generated by a Generative AI technology ([employer]), reviewed, edited, and finalized by LARY Jones. documented in this encounter Plan of Treatment Upcoming Encounters Date Type Department Care Team (Late st Contact Info) Description 11/27/2024 11:00 AM CDT Office Visit [facility] [address] [facility] [address] [place] [phone] Beth Calderon FNP [address] [facility] [place] [phone] Malu Moscoso DO [address] [facility] [address] [place] [phone] 11/29/2024 9:30 AM CDT Telemed [facility] [place] [address] [facility] [address] [place] [address] Marc Abdul MD [address] [facility] [place] [phone] 12/03/2024 9:40 AM CDT Office Visit [facility] [place] [address] [place] [address] [place] [phone] Beth Calderon FNP [address] [facility] [place] [phone] 12/16/2024 1:[address] [facility] [address] [facility] [address] [place] [address] Beth Calderon FNP [address] [facility] [place] [phone] 01/01/2025 9:00 AM CDT Office Visit [facility] [place] [address] [place] [address] [place] [phone] Beth Calderon, [facility] [address] [facility] [place] [phone] 01/14/2025 3:00 PM FAMILY SOCIOLOGIST Telemed [facility] [place] [address] [phone] Mouna Reagan NP [address] [place] [phone] documented as of this encounter Visit Diagnoses Diagnosis Dental infection- Primary Acute apical periodontitis of pulpal origin Wheezing Declined influenza vaccine Vaccination not carried out because of patient refusal documented in this encounter Additional Health Concerns Assessment Noted Time PHQ-9 Depression Total Score: 4 03/15/19 25 9:39 AM FAMILY SOCIOLOGIST documented as of this encounter Care Teams Dump Attendant Relationship Specialty Start Date End Date Xenia Iverson MD [address] [phone] PCP - General Family Practice 05/16/23 documented as of this encounter
--- OUTSIDE RECORDS SUMMARY | 2024-11-16 04:33 | XMS_ITS | Encounter Summary ---
Author Organization [facility] Address [address] [place] [address] Care Team Providers Care Transfer Table Operator Helper Name Role Phone Xenia Iverson MD Primary Care Provider [phone] Reason for Visit * Reason Comments Chest Pain Encounter Details Date Type Department Care Team ([facility] st Contact Info) Description 11/16/2024 4:33 AM CDT - 11/16/2024 7:55 AM CDT Emergency [facility] Emergency Medicine [address] [place] [address] Randolph Farooq MD [address] [place] [address] Shelton Bacon, [address] [place] [address] Chest pain, unspecified type (Primary Dx); HTN (hypertension), benign; Obesity (BMI 30.0-34.9) Discharge Disposition: Home or Self Care Social History Tobacco Use Types Packs/Day Years Used Date Smoking Tobacco: Every Day Cigarettes 1 13.7 Started: 03/13/2015; Last attempted to quit: 07/14/2014 Smokeless Tobacco: Never Alcohol Use Standard Drinks/Week Comments Not Currently 0 (1 standard drink = 0.6 oz pur e alcohol) Feeling Safe Answer Date Recorded Are you in a relationship wi th someone who hurts you emotionally and/or physically? No 11/16/2024 Food Insecurity Answer Date Recorded Patient needs follow up regardin 07/03/2024 Transportation Needs Answer Date Record ed Patient needs follow up regardin 07/03/2024 Housing Stability Answer Date Recorded Social/Environmental Concerns No concerns Utility Needs Answer Date Recorded Patient needs follow up regardin 07/03/2024 Comments No Sex and Gender Information Value Date Recorded Sex Assigned at Not on file Legal Sex Female 2:20 AM CONFLICT RESOLUTION PROFESSIONAL Gender Identity Not on file Sexual Orientation Not on file documented as of this encounter Last Filed Vital Signs Vital Sign Reading Time Taken Comments Blood Pressure 157/84 11/16/2024 7:45 AM CDT Pulse 70 11/16/2024 7:45 AM CDT Temperature 36.8 C (98.3 F) 11/16/2024 7:45 AM CDT Respiratory Rate 21 11/16/2024 7:45 AM CDT Oxygen Saturation 98% 11/16/2024 7:45 AM CDT Inhaled Oxygen Concentration - - Weight 177.4 kg (391 lb 3.2 oz) 11/16/2024 4:33 AM CDT Height 172.7 cm (5' 8 ) 11/16/2024 4:33 AM CDT Body Mass Index 59.48 11/16/2024 4:33 AM CDT documented in this encounter Discharge Instructions * Discharge Instructions* Shelton Bacon DO - 11/16/2024 7:45 AM CDT You have been diagnosed with chest pain. Please follow-up with your sales and service officer Monday. Call them to update them that your blood pressures were very labile and they went up and down often. Some of them were reassuring that others especially her initial 1 was rather elevated. They did seem to improve throughout your stay. They may want to adjust her medications. Please get an appointment with them this week to discuss your ER visit. Please return for persistent chest pain, pressure, shortness of breath especially was accompanied with palpitations dizziness lightheadedness or left-sided chest pain. If you are having lower extremity swelling please return. * Attachments The following attachments cannot be sent through Care Everywhere. * Hypertension (Georgian) * Chest Pain (Georgian) * BMI (Body Mass Index) (Georgian) documented in this encounter Medications at Time of Discharge ergocalciferol (VITAMIN D2) 50,000 unit capsule TAKE 1 CAPSULE BY MOUTH ON MONDAY AND MONDAY FOR 90 DAYS. RECHECK VITAMIN D PRIOR TO REFILL. 5 cephALEXin (KEFLEX) 500 mg capsuleIndications :Dental infection Take 1 Capsule (500 mg) by mouth 4 times daily for 10 days. 40 Capsule 5 11/24/19 25 albuterol sulfate HFA 90 mcg/actuation aerosol inhalerIndications :Wheezing Take 2 Puffs by inhalation every 4 hours as needed for Shortness of Breath or Wheezing. 8.5 Gram 3 5 cyanocobalamin (VITAMIN B-12) 1,000 mcg/mL Solution INJECT 1 ML ( 1,000 MCG ) INTRAMUSCULARLY EVERY 30 DAYS 1 mL 5 nicotine (NICODERM CQ) 21 mg/24 hr patchIndications:C igarette nicotine dependence, uncomplicated Apply 1 Patch to skin as directed every 24 hours. 14 Patch 5 mupirocin (BACTROBAN) 2 % Ointment APPLY TO AFFECTED AREA ONCE DAILY 5 potassium CHLORIDE (K-TAB) 20 mEq Extended Release tabletIndications: Localized edema Take 1 Tablet (20 mEq) by mouth daily with breakfast. 100 Tablet 3 5 ferrous gluconate 324 mg (38 mg iron) tablet Take 1 Tablet by mouth 2 times daily. 5 fluticasone propionate (FLONASE) 50 mcg/spray [place], Suspension nasal inhalerIndications :Environmental allergies Administer 2 Sprays in each nostril daily. 16 Gram 2 5 cetirizine (ZyrTEC) 10 mg tabletIndications: Environmental allergies Take 1 Tablet (10 mg) by mouth daily. 90 Tablet 1 5 budesonide-formote roL (SYMBICORT) 80-4.5 mcg/actuation HFA Aerosol InhalerIndications :Bronchitis Take 1 Puff by inhalation 2 times daily. 10.2 Gram 5 albuterol (PROVENTIL,VENTOLI N) 2.5 mg /3 mL (0.083 %) Solution for NebulizationIndica tions:Acute cough,Bronchitis Take 3 mL (2.5 mg) by inhalation every 6 hours as needed for Shortness of Breath or Wheezing. 320 mL 2 5 nebulizerIndicatio ns:Acute cough,Bronchitis Length of need 99 months Nebulizer with compressor, Kit: Disposable Nebulizer Kit, 2 per month, filters , areosol mask: No. Name of Medication: Albuterol 1 Each 5 busPIRone (BUSPAR) 7.5 mg TabletIndications: Generalized anxiety disorder Take 1 Tablet (7.5 mg) by mouth 3 times daily. 300 Tablet 3 5 famotidine (PEPCID) 40 mg tabletIndications: Gastroesophageal reflux disease, unspecified whether esophagitis present Take 1 Tablet (40 mg) by mouth 2 times daily. 200 Tablet 3 5 folic acid (FOLVITE) 1 mg tabletIndications: Moderate episode of recurrent major depressive disorder (CMS/HCC) Take 1 Tablet (1 mg) by mouth daily. 100 Tablet 3 5 furosemide (LASIX) 40 mg tabletIndications: Localized edema Take 1 Tablet (40 mg) by mouth daily. 100 Tablet 3 5 lamoTRIgine (LaMICtal) 25 mg tabletIndications: Generalized anxiety disorder,Moderate episode of recurrent major depressive disorder (CMS/HCC) Take 1 Tablet (25 mg) by mouth 2 times daily. 200 Tablet 3 5 medroxyPROGESTERon e (Provera) 10 mg tabletIndications: Dysfunctional uterine bleeding Take one tablet daily for 10 days every month 30 Tablet 3 5 metoprolol tartrate (LOPRESSOR) 50 mg tabletIndications: Essential hypertension Take 1 Tablet (50 mg) by mouth 2 times daily. 200 Tablet 3 5 sertraline (ZOLOFT) 100 mg tabletIndications: Generalized anxiety disorder,Moderate episode of recurrent major depressive disorder (CMS/HCC) TAKE 1 AND 1/2 TABLETS(150 MG) BY MOUTH DAILY 150 Tablet 3 5 documented as of this encounter ED Notes * Deysi Ruffin RN - 11/16/2024 7:32 AM CDT Provider at bedside. * Rekha Villar RN - 11/16/2024 4:37 AM CDT Nikia Rivera 29 y.o. female, arrived to the ED via TRANSPORTATION: private vehicle for complaints of chest pain. Per patient woke from sleep about 2 am having chest pain with SOB, mid sternum rates pain 7/10 constant sharp and throbbing , with SOB. Chief Complaint Patient presents with Chest Pain . Vitals taken, patient placed on monitor, clothing removed as needed per policy, privacy provided to patient. Respiratory: SOB, Cardiac/Circulatory: see note above, Skin: WDL - Normal color for ethnicity, skin intact, patient is Alert and Oriented x4, pain scale: 7/10, findings; bleeding: without any bleeding noted. Behavior during evaluation: appropriate. Belongings secured, patient Weapons assessment: denied possession of any weapons or firearms at this time. Patient comforted, all questionsanswered to the best of the staff's ability, education performed, and left patient in the room withthe call light in reach, bed in lowest position, wheels locked, side rails up. * Laurence Wilson RCP - 11/16/2024 4:33 AM CDT EKG completed. Results given to Dr. Farooq and scanned into [email or web address]. * Shelton Bacon DO - 11/16/2024 4:26 AM CDT HISTORY OF PRESENT ILLNESS This 29-year-old female with a history of depression, morbid obesity, PTSD and hypertension presents to the ER with chest pain that woke her up from sleep around 2 AM. It was associated with shortness of breath and patient reported that her heart was beating fast. At that time, her arms felt heavy.She waited, hoping the pain would go away. With time, the pain went into the neck and back. So she asked her boyfriend to bring her in for evaluation. Currently, pain is slightly better but has not completely resolved. She rates her pain at 4 out of 10. This has happened to her in the past and she was told it is due to anxiety. Review of records show that patient was recently started on Zepbound for morbid obesity. She was recently referred to pulmonology but has not been able to follow-up. She is being worked up for possible bariatric surgery. PAST MEDICAL HISTORY REVIEWED MEDICAL: Patient has a past medical history of Anxiety state, Depression, Endometriosis, HTN (hypertension),Hypothyroidism, PCOD (polycystic ovarian disease), and PUD (peptic ulcer disease). SURGICAL: Patient has a past surgical history that includes tonsillectomy; adenoidectomy; and pr laparoscopy surg cholecystectomy (N/A, 02/22/2024). ALLERGIES Amoxicillin PHYSICAL EXAM INITIAL VS BP: (!) 196/92 (11/16/24432), Heart Rate: 85 bpm (11/16/24432), Resp: 18 (11/16/24432), Pulse: 82 (11/16/24 0500), Temp: 97.2 ??F (36.2 ??C) (11/16/24432), Temp src: Temporal (11/16/24432),SpO2: 99 % (11/16/24432), Height: 5' 8 (172.7 cm) (11/16/24432), Weight: (!) 177.4 kg (391 lb 3.2 oz) (11/16/24432), BMI (Calculated): (!) 59.48 (11/16/24432) Patient's last menstrual periodwas 04/01/2024 (approximate). Physical Exam Vitals and nursing note reviewed. Constitutional: General: She is not in acute distress. Appearance: Normal appearance. She is morbidly obese. She is not toxic-appearing. HENT: Head: Normocephalic and atraumatic. Eyes: Extraocular Movements: Extraocular movements intact. Conjunctiva/sclera: Conjunctivae normal. Cardiovascular: Rate and Rhythm: Normal rate and regular rhythm. Pulses: Normal pulses. Heart sounds: No murmur heard. Pulmonary: Effort: Pulmonary effort is normal. No respiratory distress. Breath sounds: Normal breath sounds. No rhonchi or rales. Abdominal: General: Bowel sounds are normal. There is no distension. Palpations: Abdomen is soft. Tenderness: There is no abdominal tenderness. Musculoskeletal: Cervical back: Normal range of motion and neck supple. Right lower leg: No edema. Left lower leg: No edema. Skin: General: Skin is warm and dry. Neurological: General: No focal deficit present. Mental Status: She is alert and oriented to person, place, and time. Psychiatric: Behavior: Behavior normal. DIAGNOSTICS LAB: CBC WITH DIFFERENTIAL - Abnormal Result Value WBC 9.1 RBC 4.64 HEMOGLOBIN 11.1 (*) HEMATOCRIT 34.9 MCV 75.2 (*) MCH 23.9 (*) MCHC 31.8 (*) RDW 16.3 (*) RDW-STDEV 43.8 PLATELETS 230 MPV 10.8 NEUTROPHILS 64 LYMPHOCYTES 26 MONOCYTES 5 EOSINOPHILS 4 BASOPHILS 1 IMMATURE GRANULOCYTES 1 NEUTROPHIL ABSOLUTE 5.85 LYMPHOCYTE ABSOLUTE 2.32 MONOCYTE ABSOLUTE 0.45 (*) EOSINOPHIL ABSOLUTE 0.39 (*) BASOPHILS ABSOLUTE 0.05 IMMATURE GRANULOCYTES ABSOLUTE 0.05 COMPREHENSIVE METABOLIC PANEL - Abnormal SODIUM 138 POTASSIUM 3.8 CHLORIDE 106 CO2 23 CALCIUM 8.8 BUN 10 CREATININE 0.63 GLUCOSE 161 (*) TOTAL PROTEIN 6.9 ALBUMIN 3.8 BILIRUBIN TOTAL 0.3 ALKALINE PHOSPHATASE 117 (*) AST 22 ALT 25 GFR >60 ANION GAP 9 BRAIN NATRIURETIC PEPTIDE, BNP OR PROBNP - Abnormal PROBNP, N TERMINAL 430 (*) TROPONIN BASELINE, 5TH GEN - Normal TROPONIN T, BASELINE 5TH GEN <6 TROPONIN 2 HR, 5TH GEN - Normal TROPONIN T, 2 HR 5TH GEN <6 RADIOLOGY: No orders to display EKG: PROCEDURES Procedures MEDICAL DECISION MAKING AND PLAN OF CARE ED Course as of 11/16/24 0745 Sat Nov 16, [address] Bacon. [CN] 0777 CTA CHEST W AND/OR WO CONTRAST [] ED Course User Index [CN] Randolph Farooq MD [] Shelton Bacon DO Medical Decision Making Received this patient handoff from Dr. Farooq. Her workup was largely completed. Labs to include 2 negative troponins that were nondetectable along with chest x- ray and EKG were all accomplished. Patient is not having a STEMI. I have just taken his note over at the end of the workup waiting for CTA chest to return. CTA chest is negative for acute PE or dissection. No evidence of pneumonia or pneumothorax. I agree with Dr. Farooq's assessment and physical exam. I did do my own independent physicalexam and a brief interview with the patient and he states that her symptoms are greatly improved ifnot gone. She does have follow- up with cardiology and pulmonology which is pending. Discussed with her the risk benefits of being discharged to follow-up with her sales and service officer which she has agreed to. She does have some risk factors however given the fact that her chest pain is resolved we will discharge her at this time. Her blood pressure is still labile but has not had any severe range blood pressures since initial arrival. Most recent 1 at this time is 160/90. She does have blood pressure me dicine at home I have encouraged her to continue to take. I told her to call cardiology first thingMonday morning to update them that she is having intermittent chest pain still, and that her blood pressure is still somewhat labile and poorly controlled and to try to get in with them this week. I have given her very strict return precautions and said please return immediately for evaluation if she is having return of her chest pain or shortness of breath. Did briefly discussed with her transfer for her chest pain however she would like to follow-up outpatient. I did offer this to her as she does have some risk factors and discussed this with her however since she already has cardiology she would like to follow-up outpatient with them. Amount and/or Complexity of Data Reviewed Labs: ordered. Decision-making details documented in ED Course. Radiology: ordered. Decision-making details documented in ED Course. Details: No acute process ECG/medicine tests: ordered. Details: EKG initially interpreted by prior physician before shift change. On my read it is normal sinus rhythm of 84 bpm. Normal axis. Normal intervals. No LVH. No hyperacute T waves. No STEMI. Normal EKG. Risk OTC drugs. Prescription drug management. Clinical Scoring & Consults Medications Administered During the ED Stay from 11/16/2024 0426 to 11/16/2024 0745 Date/Time Order Dose Route Action 11/16/2024 0511 CDT aspirin (KALEN CHEWABLE) chewable tablet 324 mg 324 mg Oral Given 11/16/2024 0520 CDT nitroglycerin (NITROSTAT) tablet 0.4 mg 0.4 mg Sublingual Given 11/16/2024 0512 CDT nitroglycerin (NITROSTAT) tablet 0.4 mg 0.4 mg Sublingual Given 11/16/2024 0604 CDT iopamidoL (ISOVUE-300) 61% injection (single-use vial) 100 mL 100 mL IV Contrast Given . New Prescriptions for this Encounter LAST VS BP: (!) 153/80 (11/16/24714), Heart Rate: 85 bpm (11/16/24714), Resp: 20 (11/16/24714), Pulse: 78 (11/16/24714), Temp: 97.2 ??F (36.2 ??C) (11/16/24432), Temp src: Temporal (11/16/24432),SpO2: 96 % (11/16/24714) CLINICAL IMPRESSION Diagnoses Diagnosis Comment Added By Time Added Chest pain, unspecified type [R07.9] Shelton Bacon DO 11/16/2024 7:43 AM HTN (hypertension), benign [I10] Shelton Bacon DO 11/16/2024 7:43 AM Obesity (BMI 30.0-34.9) [E66.811] Shelton Bacon DO 11/16/2024 7:43 AM DISPOSITION, EDUCATION AND MEDICATION RECONCILIATION Medications reconciled. See after visit summary for patient education on discharged patients. ED Disposition ED Disposition Discharge Condition Stable User Shelton Bacon DO Date/Time Sat Nov 16, 2024 7:43 AM Comment -- ATTESTATION STATEMENTS Diagnoses Diagnosis Comment Added By Time Added Chest pain, unspecified type [R07.9] Shelton Bacon DO 11/16/2024 7:43 AM HTN (hypertension), benign [I10] Shelton Bacon DO 11/16/2024 7:43 AM Obesity (BMI 30.0-34.9) [E66.811] Shelton Bacon DO 11/16/2024 7:43 AM documented in this encounter Miscellaneous Notes * Gen AI BRIGID - GENERATIVE AI HANDOFF NOTE - 11/16/2024 8:28 AM CDT ## ER_course: ## # DIAGNOSIS: Chest pain, unspecified type; Hypertension (HTN), benign; Obesity (BMI 30.0-34.9). # The patient, a 29-year-old female, presented to the ED with chest pain that woke her from sleep, accompanied by shortness of breath and a sensation of fast heartbeats. The pain was initially rated at 7/10 and later decreased to 4/10. She has a history of anxiety, depression, morbid obesity, PTSD, and hypertension. # During the ER visit, the patient's blood pressure was initially high at 196/92, and her BMI was noted to be 59.48. The EKG showed normal sinus rhythm, and two troponin tests were negative, ruling out a STEMI. A CTA chest was negative for acute pulmonary embolism, dissection, pneumonia, or pneumothorax. The patient was administered aspirin and nitroglycerin during her stay. # Abnormal lab findings included a low hemoglobin of 11.1, low MCV of 75.2, low MCH of 23.9, low MCHC of 31.8, elevated RDW of 16.3, elevated glucose of 161, elevated alkaline phosphatase of 117, and elevated NT-proBNP of 430. # The patient was discharged with improved symptoms and advised to follow up with cardiology and pulmonology. ## Follow_up_orders: ## # The patient is advised to continue her blood pressure medication at home. # She is instructed to call her sales and service officer on Monday to update them on her intermittent chest pain and labile blood pressure, and to try to get an appointment within the week. # Strict return precautions were given, advising her to return immediately if chest pain or shortness of breath recurs. # Follow-up with cardiology and pulmonology is pending. ## Home_Situation: ## # No specific factors impairing follow-up care were noted in the ER documentation. The patient arrived via private vehicle, indicating some level of transportation access. documented in this encounter Plan of Treatment Upcoming Encounters Date Type Department Care Team (Late st Contact Info) Description 11/27/2024 11:00 AM CDT Office Visit [facility] [address] [place] [address] Beth Calderon FNP [address] [facility] [place] [address] Malu Moscoso DO [address] [place] [address] 11/29/2024 9:30 AM CDT Telemed [facility] [place] [address] [facility] [address] [place] [address] Marc Abdul MD [address] [facility] [place] [address] 12/03/2024 9:40 AM CDT Office Visit [facility] [place] [address] [place] [address] [place] [address] Beth Calderon FNP [address] [facility] [place] [address] 12/16/2024 1:[address] [facility] [address] [place] [address] Beth Calderon FNP [address] [facility] [place] [address] 01/01/2025 9:00 AM CDT Office Visit [facility] [place] [address] [address] [facility] [place] [address] Beth Calderon FNP [address] [facility] [place] [address] 01/14/2025 3:00 PM CONFLICT RESOLUTION PROFESSIONAL Telemed [facility] [place] [address] [place] [address] Mouna Reagan NP [address] [place] [address] documented as of this encounter Procedures Procedure Name Priority Date/Time Associated Diagnosis Comments TELEMETRY REPORT 11/18/2024 10:0 1 AM CDT TROPONIN 2 HR, 5TH GEN Timed Study 11/16/2024 6:30 AM CDT CTA CHEST W AND/OR WO CONTRAST Stat 11/16/2024 6:03 AM CDT XR CHEST PA OR AP 1 VW Stat 11/16/2024 5:35 AM CDT PULSE OXIMETRY, CONTINUOUS Stat 11/16/2024 5:07 AM CDT TROPONIN BASELINE, 5TH GEN Stat 11/16/2024 4:38 AM CDT CBC WITH DIFFERENTIAL Stat 11/16/2024 4:38 AM CDT BRAIN NATRIURETIC PEPTIDE, BNP OR PROBNP Stat 11/16/2024 4:38 AM CDT COMPREHENSIVE METABOLIC PANEL Stat 11/16/2024 4:38 AM CDT documented in this encounter Results * TELEMETRY REPORT (11/18/2024 10:01 AM CDT) us Provider Scanning ECG ORDERABLES Final Result * TROPONIN 2 HR, 5TH GEN (11/16/2024 6:30 AM CDT) TROPONIN T, 2 HR 5TH GEN <6 <=10 ng/L 11/16/2024 6:54 AM CDT [facility] Blood Venipuncture / Unknown 11/16/2024 6:30 AM CDT 11/16/2024 6:37 AM CDT Narrative [facility] - 11/16/2024 6:54 AM CDT Troponin Undetectable Delay in collection of timed specimen beyond recommended collection interval. Results must be interpreted in clinical context. Unable to calculate delta. Randolph Farooq MD CHEMISTRY ORDERABLES Final R esult [facility] CLIA # [id number] [address] [place] [id number] * CTA CHEST W AND/OR WO CONTRAST (11/16/2024 6:03 AM CDT) Anatomical Region Laterality Modality Chest Computed Tomogra phy 11/16/2024 5:37 AM CDT Impressions 11/16/2024 9:04 AM CDT IMPRESSION: No pulmonary embolus visualized. No focal infiltrates. Mildly enlarged bilateral hilar as well as mediastinal lymph nodes, nonspecific but favored to be reactive if the patient does not have history of malignancy 5 mm left apical pulmonary nodule. Low risk individuals with a nodule < 6mm do not require a routine follow up CT. High risk individuals can get an optional CT at 12 months. Nodules < 6 mm do not require routine follow-up, but certain patients at high risk with suspicious nodule morphology, upper lobe location, or both may warrant 12-month follow-up CT. These recommendations do not apply to patients with immunosuppression, or patients with known primary cancer. Fleischner Society guidelines 2017 Narrative 11/16/2024 9:04 AM CDT CTA CHEST W AND/OR WO CONTRAST; Reason For Exam: Pulmonary embolism (PE) suspected, high prob. Diagnosis: See Reason for Exam. COMPARISON: None. TECHNIQUE: During the administration of nonionic intravenous contrast, helical scanning was obtained of the chest. The patient tolerated the procedure and there were no immediate complications. Coronal, sagittal and MIP reformations were reconstructed. FINDINGS: PULMONARY ARTERIES: Good opacification of the pulmonary arteries are seen. No filling defects are seen. No pulmonary emboli are seen. PULMONARY INFARCTION: No infarction seen HEART: Heart size is within normal limits for age. RV/LV INDEX: RV/LV index is < 0.9 LUNGS: No focal consolidation. 5 mm left apical pulmonary nodule as noted on image 32 series 5. PLEURA: No pneumothorax or pleural effusion. LYMPH NODES: Mildly enlarged bilateral hilar as well as mediastinal lymph nodes are present. AORTA: Visualized portions of the aorta is within normal limits for age. OSSEOUS STRUCTURES: The visualized skeletal structures are intact. UPPER ABDOMEN: Hepatosplenomegaly is noted. Mild hepatic steatosis is suggested. Procedure Note Alli Rushing MD - 11/16/2024 CTA CHEST W AND/OR WO CONTRAST; Reason For Exam: Pulmonary embolism (PE) suspected, high prob. Diagnosis: See Reason for Exam. COMPARISON: None. TECHNIQUE: During the administration of nonionic intravenous contrast, helical scanning was obtained of the chest. The patient tolerated the procedure and there were no immediate complications. Coronal, sagittal and MIP reformations were reconstructed. FINDINGS: PULMONARY ARTERIES: Good opacification of the pulmonary arteries are seen. No filling defects are seen. No pulmonary emboli are seen. PULMONARY INFARCTION: No infarction seen HEART: Heart size is within normal limits for age. RV/LV INDEX: RV/LV index is < 0.9 LUNGS: No focal consolidation. 5 mm left apical pulmonary nodule as noted on image 32 series 5. PLEURA: No pneumothorax or pleural effusion. LYMPH NODES: Mildly enlarged bilateral hilar as well as mediastinal lymph nodes are present. AORTA: Visualized portions of the aorta is within normal limits for age. OSSEOUS STRUCTURES: The visualized skeletal structures are intact. UPPER ABDOMEN: Hepatosplenomegaly is noted. Mild hepatic steatosis is suggested. IMPRESSION: No pulmonary embolus visualized. No focal infiltrates. Mildly enlarged bilateral hilar as well as mediastinal lymph nodes, nonspecific but favored to be reactive if the patient does not have history of malignancy 5 mm left apical pulmonary nodule. Low risk individuals with a nodule < 6mm do not require a routine follow up CT. High risk individuals can get an optional CT at 12 months. Nodules < 6 mm do not require routine follow-up, but certain patients at high risk with suspicious nodule morphology, upper lobe location, or both may warrant 12-month follow-up CT. These recommendations do not apply to patients with immunosuppression, or patients with known primary cancer. Fleischner Society guidelines [address] ORDERABLES Final Result * XR CHEST PA OR AP 1 VW (11/16/2024 5:35 AM CDT) Anatomical Region Laterality Modality Chest Computed Radiogr aphy 11/16/2024 5:28 AM CDT Impressions 11/16/2024 10:24 AM CDT IMPRESSION: Unremarkable chest x-ray. Narrative 11/16/2024 10:24 AM CDT Exam: Radiographs: XR CHEST PA OR AP 1 VW Indication: Chest pain Comparison: Chest x-ray dated 05/07/2024 Procedure Note David Cummings MD - 11/16/2024 Exam: Radiographs: XR CHEST PA OR AP 1 VW Indication: Chest pain Comparison: Chest x-ray dated 05/07/2024 IMPRESSION: Unremarkable chest x-ray. us Randolph Farooq MD DIAGNOSTIC IMAGING ORDERABLE S Final Result * TROPONIN BASELINE, 5TH GEN (11/16/2024 4:38 AM CDT) TROPONIN T, BASELINE 5TH GEN <6 <=10 ng/L 11/16/2024 5:36 AM CDT [facility] Blood BLOOD SPECIMEN / Unknown Collection / Unknown 11/16/2024 4:38 AM CDT 11/16/2024 5:08 AM CDT Narrative [facility] - 11/16/2024 5:36 AM CDT Troponin Undetectable Randolph Farooq MD CHEMISTRY ORDERABLES Final R esult [facility] CLIA # [id number] [address] [place] [id number] * (ABNORMAL) BRAIN NATRIURETIC PEPTIDE, BNP OR PROBNP (11/16/2024 4:38 AM CDT) PROBNP, N TERMINAL 430(H) 0 - 125 pg/mL 11/16/2024 5:36 AM CDT [facility] Comment: INTERPRETIVE COMMENT based on diagnosis: Diagnostic NT pro-BNP cutoffs for Heart Failure in the absence of renal failure is suggested for the following ranges <75 years: <125 pg/mL >=75 years: <450 pg/mL Exclusionary rule out cut-point for Acute Decompensated Heart Failure(ADHF) All ages: <300 pg/mL Diagnostic NT pro-BNP cutoffs for Acute Decompensated Heart Failure(ADHF) in the absence of renal failure is suggested for the following ages <50 years: > 450 pg/mL 50-75 years: > 900 pg/mL >75 years: >1800 pg/mL Blood BLOOD SPECIMEN / Unknown Collection / Unknown 11/16/2024 4:38 AM CDT 11/16/2024 5:08 AM CDT Randolph Farooq MD CHEMISTRY ORDERABLES Final R esult [id number] [address] [place] [address] * (ABNORMAL) COMPREHENSIVE METABOLIC PANEL (11/16/2024 4:38 AM CDT) SODIUM 138 136 - 145 mmol/L 11/16/2024 5:36 AM [facility] POTASSIUM 3.8 3.5 - 5.1 mmol/L 11/16/2024 5:36 AM [facility] CHLORIDE 106 98 - 107 mmol/L 11/16/2024 5:36 AM T [facility] CO2 23 22 - 29 mmol/L 11/16/2024 5:36 AM T [facility] CALCIUM 8.8 8.6 - 10.0 mg/dL 11/16/2024 5:36 AM [facility] BUN 10 6 - 20 mg/dL 11/16/2024 5:36 AM [facility] CREATININE 0.63 0.51 - 0.95 mg/dL 11/16/2024 5:36 AM [facility] GLUCOSE 161(H) 74 - 99 mg/dL 11/16/2024 5:36 AM [facility] TOTAL PROTEIN 6.9 6.6 - 8.7 g/dL 11/16/2024 5:36 AM [facility] ALBUMIN 3.8 3.5 - 5.2 g/dL 11/16/2024 5:36 AM [facility] BILIRUBIN TOTAL 0.3 0.0 - 1.2 mg/dL 11/16/2024 5:36 AM [facility] ALKALINE PHOSPHATASE 117(H) 35 - 104 U/L 11/16/2024 5:36 AM [facility] AST 22 0 - 35 U/L 11/16/2024 5:36 AM [facility] ALT 25 0 - 35 U/L 11/16/2024 5:36 AM [facility] GFR >60 >=60 mL/min/1.7 3 sq meter 11/16/2024 5:36 AM [facility] Comment:eGFR calculated with 2020 CKD-EPI equation. Vegetarian diet, extremely high or low muscle mass, and may affect results. Cystatin C with Glomerular Filtration Rate is a suitable alternative for these patients. ANION GAP 9 5 - 20 mmol/L 11/16/2024 5:36 AM [facility] Blood BLOOD SPECIMEN / Unknown Collection / Unknown 11/16/2024 4:38 AM CDT 11/16/2024 5:08 AM CDT us Randolph Farooq MD CHEMISTRY ORDERABLES Final R esult [facility] CLIA # [id number] [address] [place] [address] * (ABNORMAL) CBC WITH DIFFERENTIAL (11/16/2024 4:38 AM CDT) WBC 9.1 4.0 - 10.0 K/uL 11/16/2024 5:11 AM [facility] RBC 4.64 3.93 - 5.22 M/uL 11/16/2024 5:11 AM [facility] HEMOGLOBIN 11.1(L) 11.2 - 15.7 g/dL 11/16/2024 5:11 AM [facility] HEMATOCRIT 34.9 34.1 - 44.9 % 11/16/2024 5:11 AM [facility] MCV 75.2(L) 79.4 - 94.8 fL 11/16/2024 5:11 AM [facility] MCH 23.9(L) 25.6 - 32.2 pg 11/16/2024 5:11 AM [facility] MCHC 31.8(L) 32.2 - 35.5 g/dL 11/16/2024 5:11 AM [facility] RDW 16.3(H) 11.0 - 14.5 % 11/16/2024 5:11 AM [facility] RDW-STDEV 43.8 36.9 - 56.9 fL 11/16/2024 5:11 AM [facility] PLATELETS 230 163 - 337 K/uL 11/16/2024 5:11 AM [facility] MPV 10.8 10.0 - 14.8 fL 11/16/2024 5:11 AM [facility] NEUTROPHILS 64 34 - 71 % 11/16/2024 5:11 AM [facility] LYMPHOCYTES 26 19 - 52 % 11/16/2024 5:11 AM [facility] MONOCYTES 5 5 - 13 % 11/16/2024 5:11 AM [facility] EOSINOPHILS 4 1 - 6 % 11/16/2024 5:11 AM [facility] BASOPHILS 1 0 - 1 % 11/16/2024 5:11 AM [facility] IMMATURE GRANULOCYTES 1 % 11/16/2024 5:11 AM [facility] NEUTROPHIL ABSOLUTE 5.85 1.56 - 6.13 K/uL 11/16/2024 5:11 AM [facility] LYMPHOCYTE ABSOLUTE 2.32 1.20 - 3.40 K/uL 11/16/2024 5:[address] [facility] MONOCYTE ABSOLUTE 0.45(H) 0.24 - 0.36 K/uL 11/16/2024 5:11 AM CDT [facility] EOSINOPHIL ABSOLUTE 0.39(H) 0.04 - 0.36 K/uL 11/16/2024 5:11 AM CDT [facility] BASOPHILS ABSOLUTE 0.05 0.01 - 0.08 K/uL 11/16/2024 5:11 AM CDT [facility] IMMATURE GRANULOCYTES ABSOLUTE 0.05 K/uL 11/16/2024 5:11 AM CDT [facility] Blood BLOOD SPECIMEN / Unknown Collection / Unknown 11/16/2024 4:38 AM CDT 11/16/2024 5:08 AM CDT Randolph Farooq MD HEMATOLOGY ORDERABLES Final Result [facility] [id number] [address] [place] [address] documented in this encounter Visit Diagnoses Diagnosis Chest pain, unspecified type- Primary HTN (hypertension), benign Essential hypertension, benign Obesity (BMI 30.0-34.9) Obesity, unspecified documented in this encounter Administered Medications Inactive Administered Medications - up to 3 most recent administrations Medication Order MAR Action Action Date Dose Rate Site aspirin (KALEN CHEWABLE) chewable tablet 324 mg 324 mg, Oral, ONE TIME ONLY, 1 dose, On 11/16/24 at 0515, Routine Given 11/16/2024 5:11 AM CDT 324 mg iopamidoL (ISOVUE-300) 61% injection (single-use vial) 100 mL 100 mL, IV, INTRA-PROCEDURE ONCE, 1 dose, Starting on 11/16/24 at 0601, Until 11/16/24 at 0604, Routine Contrast Given 11/16/2024 6:04 AM CDT 100 mL nitroglycerin (NITROSTAT) tablet 0.4 mg 0.4 mg, Sublingual, EVERY 5 MINUTES PRN, Starting on 11/16/24 at 0506, Until 11/16/24 at 1001, Chest Pain, Routine Given 11/16/2024 5:20 AM CDT 0.4 mg Given 11/16/2024 5:12 AM CDT 0.4 mg documented in this encounter Active and Recently Administered Medications Times are shown in CDT. Scheduled Medication Order 11/14/2024 11/15/2024 11/16/2024 aspirin (KALEN CHEWABLE) chewable tablet 324 mg (COMPLETED) 324 mg, Oral, ONE TIME ONLY, 1 dose, On 11/16/24 at 0515, Routine 0511 (Given - Provid er: Rekha Villar RN) iopamidoL (ISOVUE-300) 61% injection (single-use vial) 100 mL (COMPLETED) 100 mL, IV, INTRA-PROCEDURE ONCE, 1 dose, Starting on 11/16/24 at 0601, Until 11/16/24 at 0604, Routine 0604 (Contrast Given - Provider: Martín Gonzales, RT) PRN Medication Order 11/14/2024 11/15/2024 11/16/2024 nitroglycerin (NITROSTAT) tablet 0.4 mg 0.4 mg, Sublingual, EVERY 5 MINUTES PRN, Starting on 11/16/24 at 0506, Until 11/16/24 at 1001, Chest Pain, Routine 0512 (Given - Provid er: Rekha Villar RN)0520 (Given - Provider: Rekha Villar RN) documented in this encounter Additional Health Concerns Assessment Noted Time PHQ-9 Depression Total Score: 4 03/15/19 25 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
--- OUTSIDE RECORDS SUMMARY | 2024-11-19 11:00 | XMS_ITS | Encounter Summary ---
Author Organization [facility] Address [address] [place] [address] Care Team Providers Care Gas Station Operator Name Role Phone Xenia Iverson MD Primary Care Provider [phone] Reason for Referral * Eval and Treat (Routine) - Authorized Specialty Diagnoses / Procedures Referred By Weston david Referred To Contact Multi Specialty Diagnoses Loud snoring Procedures ND OFFICE/OUTPATIENT ESTABLISHED MOD MDM 30 MIN ND OFFICE/OUTPATIENT NEW MODERATE MDM 45 MINUTES Beth Calderon FNP [address] [place] [address] Phone: tel: fax: [facility] [place] [address] [place] [address] Phone: tel: fax: Referral ID Status Reason Start Date Expiration Date V isits Requested Visits Authorized [id number] Authorized 11/19/2024 11/19/2025 1 1 * Echocardiography (Routine) - Pending Review Specialty Diagnoses / Procedures Referred By Weston david Referred To Contact Radiology Diagnoses Elevated brain natriuretic peptide (BNP) level Chest pain, unspecified type Procedures ECHO COMPLETE - CONTRAST AND STRAIN IF INDICATED ECHO COMPLETE - CONTRAST AND STRAIN IF INDICATED ND ECHO TTHRC R-T 2D W/WOM-MODE COMPL SPEC&COLR D ND MYOCRD STRAIN IMG SPECKLE TRCK ASSMT MYOCRD [facility] ND TTE W OR WO FOL WCON,DOPPLER Beth Calderon FNP [address] [facility] [place] [address] Phone: tel: fax: [facility] [place] [address] [place] [address] Phone: tel: fax: Referral ID Status Reason Start Date Expiration Date Visits Requested Visits Authorized [id number] Pending Review [facility] View CTS to Schedule 11/19/2024 12/20/2025 1 1 * Eval and Treat (Routine) - Authorized Specialty Diagnoses / Procedures Referred By Weston t Referred To Contact Interventional Cardiology / Cardiology Diagnoses Elevated brain natriuretic peptide (BNP) level Chest pain, unspecified type Procedures ND OFFICE/OUTPATIENT ESTABLISHED MOD MDM 30 MIN ND OFFICE/OUTPATIENT NEW MODERATE MDM 45 MINUTES Beth Calderon FNP [address] [facility] [place] [address] Phone: tel: fax: [facility] [id number] [facility] [address] [place] [phone] Phone: tel: fax: Referral ID Status Reason Start Date Expiration Date V isits Requested Visits Authorized [id number] Authorized 11/19/2024 11/19/2025 1 1 Reason for Visit * Reason Comments ER Follow Up Encounter Details Date Type Department Care Team (Late st Contact Info) Description 11/19/2024 11:00 AM CDT Office Visit [facility] [place] [address] [place] [address] [place] [address] Beth Calderon FNP [address] [facility] [place] [address] Elevated brain natriuretic peptide (BNP) level (Primary Dx); Essential hypertension; Chest pain, unspecified type; Loud snoring Social History Tobacco Use Types Packs/Day Years [...] on file 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 Gender Identity Not on file Sexual Orientation Not on file documented as of this encounter Last Filed Vital Signs Vital Sign Reading Time Taken Comments Blood Pressure 110/82 11/19/2024 11:19 AM CDT Pulse 93 11/19/2024 11:19 AM CDT Temperature 36.6 C (97.8 F) 11/19/2024 11:19 AM CDT Respiratory Rate 20 11/19/2024 11:19 AM CDT Oxygen Saturation 97% 11/19/2024 11:19 AM CDT Inhaled Oxygen Concentration - - Weight 173.7 kg (383 lb) 11/19/2024 11:19 AM CDT Height 172.7 cm (5' 8 ) 11/19/2024 11:19 AM CDT Body Mass Index 58.23 11/19/2024 11:19 AM CDT documented in this encounter Progress Notes * Beth Calderon FNP - 11/19/2024 12:02 PM CDT HISTORY OF PRESENT ILLNESS: Chief Complaint Patient presents with ER Follow Up Subjective History of Present Illness The patient is a 29-year-old female who presents for a follow-up from an ER visit. She has been experiencing labile blood pressure, which fluctuates between high and low readings. She reports that her blood pressure is not in a dangerous range anymore. During her ER visit, she was informed that her heart and lungs were affected, but she was not having a heart attack and could go home. She has been on metoprolol since she was 17 years old and continues to take it regularly. She also takes Lasix and potassium supplements, although she needs a refill of the latter. She has been unable to walk to the bathroom without experiencing shortness of breath. Additionally,she reports back pain, which she is unsure if it is related to her lungs, and headaches upon wakingup. She has been experiencing significant swelling. She has not yet consulted with a machine edge bander or claims associate. She recalls an episode that woke her up from sleep, leading her to believe she was h aving a heart attack. She reports snoring and constant fatigue. She is considering bariatric surgery but needs to quit smoking for 6 weeks before proceeding. Tobacco: The patient smokes cigarettes. Sleep: Reports snoring and constant fatigue. REVIEW OF SYSTEMS Review of Systems Constitutional: Negative for activity change, appetite change and fatigue. Respiratory: Positive for shortness of breath. Negative for cough and chest tightness. Cardiovascular: Positive for leg swelling. Negative for chest pain and palpitations. Gastrointestinal: Negative for abdominal pain, constipation, diarrhea, nausea and vomiting. Musculoskeletal: Positive for back pain. Negative for arthralgias. Skin: Negative for color change. Neurological: Positive for dizziness and headaches. Negative for weakness and light-headedness. Psychiatric/Behavioral: Negative for sleep disturbance. Objective PHYSICAL EXAM BP 110/82 Pulse 93 Temp 97.8 ??F (36.6 ??C) (Temporal) Resp 20 Ht 5' 8 (1.727 m) Wt (!) 173.7 kg (383 lb) LMP 04/01/2024 (Approximate) SpO2 97% BMI 58.23 kg/m?? Physical Exam Vitals reviewed. Constitutional: General: She is not in acute distress. Appearance: Normal appearance. She is morbidly obese. HENT: Head: Normocephalic and atraumatic. Right Ear: External ear normal. Left Ear: External ear normal. Eyes: Conjunctiva/sclera: Conjunctivae normal. Cardiovascular: Rate and Rhythm: Normal rate and regular rhythm. Heart sounds: Normal heart sounds. Pulmonary: Effort: Pulmonary effort is normal. Breath sounds: Normal breath sounds. No wheezing. Musculoskeletal: General: Normal range of motion. Cervical back: Neck supple. Skin: General: Skin is warm. Findings: No rash. Neurological: General: No focal deficit present. Mental Status: She is alert and oriented to person, place, and time. Psychiatric: Mood and Affect: Mood normal. Behavior: Behavior normal. Results - Labs: - BNP: Elevated at 430 - Imaging: - CTA: All vessels looked good with no signs of vascular congestion - Diagnostic Testing: - EKG: Normal ASSESSMENT and PLAN: Orders Placed This Encounter AMB REFERRAL TO CARDIOLOGY ECHO COMPLETE - CONTRAST AND STRAIN IF INDICATED Assessment & Plan 1. Labile blood pressure: Her blood pressure readings have been inconsistent, with periods of both high and low readings. This could be due to interactions with other medications, such as Lamictal, which may be using the same metabolic pathway. - Conduct a comprehensive review of current medication regimen to identify any potential interactions. - Monitor blood pressure closely and continue taking prescribed medications. - Referral to cardiology in [place] for further evaluation. - Order echocardiogram to assess cardiac function. - Recheck BNP level during next visit in 2 weeks. 2. Elevated BNP: Her BNP level was significantly elevated at 430, which could indicate heart failure. Despite a normal EKG and CTA showing no signs of vascular congestion, the elevated BNP is concerning. - Order echocardiogram to further evaluate cardiac function. - Monitor for symptoms such as increased coughing episodes, shortness of breath, and swelling. - Seek immediate medical attention if any new symptoms arise or existing ones worsen. 3. Suspected sleep apnea: Symptoms including loud snoring, daytime fatigue, and waking up with headaches are suggestive of sleep apnea. - Referral to sleep medicine in [place] for a home sleep study. - Consider CPAP machine if diagnosed with sleep apnea. - Weight loss through bariatric surgery could potentially alleviate symptoms. Follow-up - Follow-up appointment scheduled for 12/03/2024 at 9:40 AM. LARY Jones, 11/19/2024 12:16 PM The author of this note, patient (or authorized sales representative health insurance), and all other persons present consent to the audio recording of this visit for charting documentation purposes. This note was automatically generated by a [employer] AI technology ([employer]), reviewed, edited, and finalized by LARY Jones. documented in this encounter Plan of Treatment Upcoming Encounters Date Type Department Care Team (Late st Contact Info) Description 11/27/2024 11:00 AM CDT Office Visit [facility] [address] [facility] [address] [place] [address] Beth Calderon FNP [address] [facility] [place] [address] Malu Moscoso DO [address] [facility] [address] [place] [phone] 11/29/2024 9:30 AM CDT Telemed [facility] - [place] [address] [facility] [address] [place] [address] Marc Abdul MD [address] [facility] [place] [address] 12/03/2024 9:40 AM CDT Office Visit [facility] [place] [address] [facility] [address] [place] [address] [place] [address] Beth Calderon FNP [address] [facility] [place] [address] 12/16/2024 1:15 PM CDT Appointment [facility] [address] [place] [address] Beth Calderon FNP [address] [facility] [place] [address] 01/01/2025 9:00 AM CDT Office Visit [facility] [place] [address] [facility] [address] [facility] [place] [phone] Beth Calderon FNP [address] [facility] [place] [phone] 01/14/2025 3:00 PM MASONRY INSPECTOR Telemed [facility] [place] [address] [phone] Mouna Reagan NP [address] [place] [address] Scheduled Orders Name Type Priority Associated Diagnoses Orde r Schedule ECHO COMPLETE - CONTRAST AND STRAIN IF INDICATED Echocardiogram Routine Elevated brain natriuretic peptide (BNP) level Chest pain, unspecified type 1 Occurrences starting 11/19/2024 until 11/19/2025 Scheduled Referrals Name Type Priority Associated Diagnoses Orde r Schedule AMB REFERRAL TO CARDIOLOGY Outpatient Referral Routine Elevated brain natriuretic peptide (BNP) level Chest pain, unspecified type Ordered: 11/19/2024 AMB REFERRAL TO SLEEP MEDICINE TELEMED Outpatient Referral Routine Loud snoring Ordered: 11/19/2024 documented as of this encounter Visit Diagnoses Diagnosis Elevated brain natriuretic peptide (BNP) level- Primary Other nonspecific findings on examination of blood Essential hypertension Unspecified essential hypertension Chest pain, unspecified type Loud snoring documented in this encounter Additional Health Concerns Assessment Noted Time PHQ-9 Depression Total Score: 4 03/15/19 25 9:39 AM 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
--- OUTSIDE RECORDS SUMMARY | 2024-11-20 17:01 | XMS_ITS | Clinical Summary ---
Author Organization [facility] Address [address] [place] [address] Care Team Providers Care Steel Roller Name Role Phone Xenia Iverson MD Primary Care Provider Allergies Active Allergy Reactions Criticality Noted Date Comments Amoxicillin Diarrhea Low 10/17/2012 Medications busPIRone (BUSPAR) 7.5 mg TabletIndication s:Generalized anxiety disorder Take 1 Tablet (7.5 mg) by mouth 3 times daily. 300 Tablet 025 Active famotidine (PEPCID) 40 mg tabletIndication s:Gastroesophage al reflux disease, unspecified whether esophagitis present Take 1 Tablet (40 mg) by mouth 2 times daily. 200 Tablet 3 025 Active folic acid (FOLVITE) 1 mg tabletIndication s:Moderate episode of recurrent major depressive disorder (CMS/HCC) Take 1 Tablet (1 mg) by mouth daily. 100 Tablet 3 025 Active furosemide (LASIX) 40 mg tabletIndication s:Localized edema Take 1 Tablet (40 mg) by mouth daily. 100 Tablet 025 Active lamoTRIgine (LaMICtal) 25 mg tabletIndication s:Generalized anxiety disorder,Moderat e episode of recurrent major depressive disorder (CMS/HCC) Take 1 Tablet (25 mg) by mouth 2 times daily. 200 Tablet 025 Active medroxyPROGESTER one (Provera) 10 mg tabletIndication s:Dysfunctional uterine bleeding Take one tablet daily for 10 days every month 30 Tablet 3 025 Active metoprolol tartrate (LOPRESSOR) 50 mg tabletIndication s:Essential hypertension Take 1 Tablet (50 mg) by mouth 2 times daily. 200 Tablet 3 025 Active sertraline (ZOLOFT) 100 mg tabletIndication s:Generalized anxiety disorder,Moderat e episode of recurrent major depressive disorder (CMS/HCC) TAKE 1 AND 1/2 TABLETS(150 MG) BY MOUTH DAILY 150 Tablet 3 025 Active albuterol (PROVENTIL,ERIN JANET) 2.5 mg /3 mL (0.083 %) Solution for NebulizationIndi cations:Acute cough,Bronchitis Take 3 mL (2.5 mg) by inhalation every 6 hours as needed for Shortness of Breath or Wheezing. 320 mL 2 025 Active nebulizerIndicat ions:Acute cough,Bronchitis Length of need 99 months Nebulizer with compressor, Kit: Disposable Nebulizer Kit, 2 per month, filters , areosol mask: No. Name of Medication: Albuterol 1 Each 025 Active budesonide-formo teroL (SYMBICORT) 80-4.5 mcg/actuation HFA Aerosol InhalerIndicatio ns:Bronchitis Take 1 Puff by inhalation 2 times daily. 10.2 Gram 025 Active fluticasone propionate (FLONASE) 50 mcg/spray [place], Suspension nasal inhalerIndicatio ns:Environmental allergies Administer 2 Sprays in each nostril daily. 16 Gram 2 025 Active cetirizine (ZyrTEC) 10 mg tabletIndication s:Environmental allergies Take 1 Tablet (10 mg) by mouth daily. 90 Tablet 1 025 Active ferrous gluconate 324 mg (38 mg iron) tablet Take 1 Tablet by mouth 2 times daily. 025 Active mupirocin (BACTROBAN) 2 % Ointment APPLY TO AFFECTED AREA ONCE DAILY 025 Active potassium CHLORIDE (K-TAB) 20 mEq Extended Release tabletIndication s:Localized edema Take 1 Tablet (20 mEq) by mouth daily with breakfast. 100 Tablet 3 025 Active nicotine (NICODERM CQ) 21 mg/24 hr patchIndications :Cigarette nicotine dependence, uncomplicated Apply 1 Patch to skin as directed every 24 hours. 14 Patch 025 Active cyanocobalamin (VITAMIN B-12) 1,000 mcg/mL Solution INJECT 1 ML ( 1,000 MCG ) INTRAMUSCULARLY EVERY 30 DAYS 1 mL 025 Active ergocalciferol (VITAMIN D2) 50,000 unit capsule TAKE 1 CAPSULE BY MOUTH ON MONDAY AND MONDAY FOR 90 DAYS. RECHECK VITAMIN D PRIOR TO REFILL. 025 Active cephALEXin (KEFLEX) 500 mg capsuleIndicatio ns:Dental infection Take 1 Capsule (500 mg) by mouth 4 times daily for 10 days. 40 Capsule 025 2024 Active albuterol sulfate HFA 90 mcg/actuation aerosol inhalerIndicatio ns:Wheezing Take 2 Puffs by inhalation every 4 hours as needed for Shortness of Breath or Wheezing. 8.5 Gram 3 025 Active albuterol sulfate HFA 90 mcg/actuation aerosol inhalerIndicatio ns:Upper respiratory tract infection, unspecified type Take 2 Puffs by inhalation every 4 hours as needed for Shortness of Breath or Wheezing. 8.5 Gram 3 025 2024 Discontinued Active Problems Problem Noted Date Diagnosed Date Heat exhaustion 08/13/2024 Morbid obesity with BMI of 50.0-59.9, adult 06/2024 Calculus of gallbladder without biliary obstruct ion 02/22/2024 Gastroesophageal reflux disease 09/12/2023 Prediabetes 05/03/2023 PCOS (polycystic ovarian syndrome) 05/03/2023 Cigarette dependence 11/09/2022 Acute cystitis with hematuria 09/13/2022 PTSD (post-traumatic stress disorder) 01/05/2022 Chest pain 12/30/2021 Palpitations 12/30/2021 Allergic rhinitis due to cat hair 12/30/2021 Mood swings 09/11/2020 Generalized anxiety disorder 09/11/2020 Moderate episode of recurrent major depressive d isorder 09/11/2020 Essential hypertension 12/03/2019 Dysfunctional uterine bleeding 12/03/2019 Vascular headache 12/03/2019 History of PCOS 12/03/2019 Encounters Date Type Department Care Team Description 11/20/2024 Telephone [facility] [address] [facility] [address] [place] [address] Provider, Abstract Cardio OVN Wanted 11/19/2024 11:00 AM CDT Office Visit [address] [address] Beth Calderon FNP Elevated brain natriuretic peptide (BNP) level (Primary Dx); Essential hypertension; Chest pain, unspecified type; Loud snoring 11/19/2024 External Device Data [facility] ABSTRACTION Provider, Abstract 11/19/2024 External Device Data [facility] ABSTRACTION Provider, Abstract 11/19/2024 External Device Data [place] ABSTRACTION Provider, Abstract 11/16/2024 4:33 AM CDT - 11/16/2024 7:55 AM CDT Emergency [facility] Emergency Medicine [address] [facility] [address] [place] [address] Randolph Farooq MD Hennon, Marcus, DO Chest pain, unspecified type (Primary Dx); HTN (hypertension), benign; Obesity (BMI 30.0-34.9) Discharge Disposition: Home or Self Care 11/16/2024 Travel 11/13/2024 10:00 AM CDT Office Visit [address] [address] Beth Calderon FNP Dental infection (Primary Dx); Wheezing; Declined influenza vaccine 10/29/2024 External Device Data [facility] ABSTRACTION Provider, Abstract 10/16/2024 External Device Data [facility] ABSTRACTION Provider, Abstract 10/08/2024 External Device Data [place] ABSTRACTION Provider, Abstract 09/29/[address] [address] Beth Calderon FNP 09/10/2024 External Device Data [place] ABSTRACTION Provider, Abstract 09/10/2024 External Device Data [place] ABSTRACTION Provider, Abstract 08/20/2024 External Device Data [place] ABSTRACTION Provider, Abstract 08/20/2024 External Device Data [facility] ABSTRACTION Provider, Abstract 08/20/2024 External Device Data [facility] ABSTRACTION Provider, Abstract from Last 3 Months Immunizations Immunization Administration Dates Next Due (ACTHIB/HIBERIX)(2 MOS-5 YRS /6 WKS-4 YRS) HAEMOPHILUS INFLUENZAE TYPE B VACCINE (HIB), PRP-T CONJUGATE, 4 DOSE, 0.5 ML IM 06/20/1996,1995 (ADACEL/BOOSTRIX)(10 YR UP) TDAP VACCINE, 0.5ML, IM 10/23/2008 (IPOL)(6 WKS AND UP) POLIOVI PRADIP VACCINE, INACTIVATED (IPV), 3 DOSE, SUBCUT OR IM 10/19/1999,1995,1995,03/17 (M-M-R II/PRIORIX)(12 MO UP) MEASLES, MUMPS AND RUBELLA VIRUS VACCINE, 0.5 ML IM/SUBCUT 10/19/1999,06/20/1996 DTP Hib Combined Vaccine IM 1995, 6 DTP Hib Combined Vaccine IM VFC 1995,06/08 DTaP Vaccine < 7 YO IM VFC 10/19/1999,06/20/1996 ,1995 Diptheria, Tetanus Toxoids, And Whole Cell Pertussis Vaccine (DTP), for intramuscular use 10/19/1999,06/20/1996,1995 Dt Dtp Dtap Vaccine 10/19/1999, 7,1995,06/08,1995 HIB, Unspecified Formulation 06/20/1996, 1995,1995,03/17 Hepatitis B Vaccine 1995, 6,1995,03/17,1995,1995 Hepatitis B Vaccine, Unspeci fied Formulation 1995,1995,1995 Human Immune Globulin IM 10/19/1999,07/13,1995,03/17 INFLUENZA VACCINE QUADRIVALE NT 6 MOS UP PF IM 01/05/2022(Deferred: Other (See comments) - documented by administering nurse) IPV/OPV 10/19/1999, 6,1995,03/17 Social History Tobacco Use Types Packs/Day Years [...] on file 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 Gender Identity Not on file Sexual Orientation Not on file Last Filed Vital Signs Vital Sign Reading [...] Mass Index 58.23 11/19/2024 11:19 AM CDT Plan of Treatment Upcoming Encounters Date Type Department Care Team (Late st Contact Info) Description 11/27/2024 11:00 AM CDT Office Visit [facility] [address] [facility] [address] [place] [address] Beth Calderon, LARY [address] [place] [address] Blanka Malulito Osorio, DO [address] [place] [address] 11/29/2024 9:30 AM CDT Telemed [facility] Telemedicine - [place] [address] [facility] [address] [place] [address] Marc Abdul MD [address] [facility] [place] [address] 12/03/2024 9:40 AM CDT Office Visit [facility] [place] [address] [place] [address] [place] [address] Beth Calderon FNP [address] [place] [address] [place] [address] 12/16/2024 1:15 PM CDT Appointment [facility] [address] [facility] [address] [place] [address] Beth Calderon FNP [address] [place] [address] [place] [address] 01/01/2025 9:00 AM CDT Office Visit [facility] [place] [address] [place] [address] [place] [address] Beth Calderon SUPERVISOR OF INSTRUCTION [address] [place] [address] [place] [address] 01/14/2025 3:00 PM NEWS LIBRARY DIRECTOR Telemed [facility] Telemedicine - [place] [address] [facility] [address] [place] [address] Mouna Reagan, CHINMAY [address] [place] [address] Health Maintenance Due Date Last Done Comments HPV/Cotest (21-29) 01/18/2016 PAP SMEAR 01/18/2016 DTAP/TDAP/TD VACCINES (7 - Td or Tdap) 10/23/2018 10/23/2008, 10/19/1999, 10/19/1999, Additional history exists HPV VACCINES (1 - 3-dose SCDM series) 2022 INFLUENZA VACCINE (#1) 2024 02/16/2023 COVID-19 Vaccine ( - season) 2024 08/11/2021 CERVICAL CANCER SCREENING 01/01/2025 Po stponed from 01/18/2016 (Patient Refused) Preventative Visit-Managed Medicaid 07/02/2025 Postponed from 2014 (Therapeutic Plan Prohibits) HEPATITIS B VACCINES Completed 1995, 1995, 1995, Additional history exists Medical Devices Implanted Type Area Television Repair Teacher Device Identifier Shelf Expiration Date Model / Serial / Lot Band Saw Filer Ligamax Endo Multi Clip 5mm El5ml - [id number] Implanted:Qty: 1 on 02/22/2024 by Scooter Rhoades DO at [facility] Clip N/A: Abdomen [employer]- [employer] [id number] 11/10/2028 EL5ML / / [id number] Procedures Procedure Name Priority Date/Time Associated Diagnosis [...] 5TH GEN Stat 11/16/2024 4:38 AM CDT BRAIN NATRIURETIC PEPTIDE, BNP OR PROBNP Stat 11/16/2024 4:38 AM CDT COMPREHENSIVE METABOLIC PANEL Stat 11/16/2024 4:38 AM CDT CBC WITH DIFFERENTIAL Stat 11/16/2024 4:38 AM CDT from Last 3 Months Results * TELEMETRY REPORT (11/18/2024 10:01 AM CDT) us Provider Scanning ECG ORDERABLES Final Result * TROPONIN 2 HR, 5TH GEN (11/16/2024 6:30 AM CDT) TROPONIN T, 2 HR 5TH GEN <6 <=10 ng/L 11/16/2024 6:54 AM CDT [facility] Blood Venipuncture / Unknown 11/16/2024 6:30 AM CDT 11/16/2024 6:37 AM CDT Narrative [facility] - 11/16/2024 6:54 AM CDT Troponin Undetectable Delay in collection of timed specimen beyond recommended collection interval. Results must be interpreted in clinical context. Unable to calculate delta. us Randolph Farooq MD CHEMISTRY ORDERABLES Final R esult [facility] CLIA # [id number] [address] [place] [address] * CTA CHEST W AND/OR WO CONTRAST [...] known primary cancer. Fleischner Society guidelines 2017 us Randolph Farooq MD CT ORDERABLES Final Result [...] GEN <6 <=10 ng/L 11/16/2024 5:36 AM [facility] Blood BLOOD SPECIMEN / Unknown Collection / Unknown 11/16/2024 4:38 AM CDT 11/16/2024 5:08 AM CDT Narrative [facility] - 11/16/2024 5:36 AM CDT Troponin Undetectable Randolph Farooq MD CHEMISTRY ORDERABLES Final R esult [facility] CLIA # [id number] [address] [place] [address] * (ABNORMAL) CBC WITH DIFFERENTIAL (11/16/2024 4:38 AM CDT) WBC 9.1 4.0 - 10.0 K/uL 11/16/2024 5:11 AM [facility] RBC 4.64 3.93 - 5.22 M/uL 11/16/2024 5:11 AM [facility] HEMOGLOBIN 11.1(L) 11.2 - 15.7 g/dL 11/16/2024 5:11 AM [facility] HEMATOCRIT 34.9 34.1 - 44.9 % 11/16/2024 5:11 AM [facility] MCV 75.2(L) 79.4 - 94.8 fL 11/16/2024 5:11 AM [facility] MCH 23.9(L) 25.6 - 32.2 pg 11/16/2024 5:11 AM [facility] MCHC 31.8(L) 32.2 - 35.5 g/dL 11/16/2024 5:11 AM [facility] RDW 16.3(H) 11.0 - 14.5 % 11/16/2024 5:11 AM [facility] RDW-STDEV 43.8 36.9 - 56.9 fL 11/16/2024 5:11 AM [facility] PLATELETS 230 163 - 337 K/uL 11/16/2024 5:11 AM [facility] MPV 10.8 10.0 - 14.8 fL 11/16/2024 5:11 AM [facility] NEUTROPHILS 64 34 - 71 % 11/16/2024 5:11 AM [facility] LYMPHOCYTES 26 19 - 52 % 11/16/2024 5:11 AM [facility] MONOCYTES 5 5 - 13 % 11/16/2024 5:11 AM [facility] EOSINOPHILS 4 1 - 6 % 11/16/2024 5:11 AM [facility] BASOPHILS 1 0 - 1 % 11/16/2024 5:11 AM [facility] IMMATURE GRANULOCYTES 1 % 11/16/2024 5:11 AM [facility] NEUTROPHIL ABSOLUTE 5.85 1.56 - 6.13 K/uL 11/16/2024 5:11 AM [facility] LYMPHOCYTE ABSOLUTE 2.32 1.20 - 3.40 K/uL 11/16/2024 5:11 AM [facility] MONOCYTE ABSOLUTE 0.45(H) 0.24 - 0.36 K/uL 11/16/2024 5:11 AM [facility] EOSINOPHIL ABSOLUTE 0.39(H) 0.04 - 0.36 K/uL 11/16/2024 5:11 AM [facility] BASOPHILS ABSOLUTE 0.05 0.01 - 0.08 K/uL 11/16/2024 5:11 AM [facility] IMMATURE GRANULOCYTES ABSOLUTE 0.05 K/uL 11/16/2024 5:11 AM [facility] Blood BLOOD SPECIMEN / Unknown Collection / Unknown 11/16/2024 4:38 AM CDT 11/16/2024 5:08 AM CDT us Randolph Farooq MD HEMATOLOGY ORDERABLES Final Result [facility] CLIA # [id number] [address] [place] [address] * (ABNORMAL) BRAIN NATRIURETIC PEPTIDE, BNP OR PROBNP (11/16/2024 4:38 AM CDT) PROBNP, N TERMINAL 430(H) 0 - 125 pg/mL 11/16/2024 5:36 AM CDT [facility] Comment: INTERPRETIVE COMMENT based on diagnosis: Diagnostic [...] Farooq MD CHEMISTRY ORDERABLES Final [facility] es[id number] [address] [place] [address] * (ABNORMAL) COMPREHENSIVE METABOLIC PANEL (11/16/2024 4:38 AM CDT) SODIUM 138 136 - 145 mmol/L 11/16/2024 5:36 AM CDT [facility] POTASSIUM 3.8 3.5 - 5.1 mmol/L 11/16/2024 5:36 AM CDT [facility] CHLORIDE 106 98 - 107 mmol/L 11/16/2024 5:36 AM CDT [facility] CO2 23 22 - 29 mmol/L 11/16/2024 5:36 AM CDT [facility] CALCIUM 8.8 8.6 - 10.0 mg/dL 11/16/2024 5:36 AM CDT [facility] BUN 10 6 - 20 mg/dL 11/16/2024 5:36 AM [facility] CREATININE 0.63 0.51 - 0.95 mg/dL 11/16/2024 5:36 AM [facility] GLUCOSE 161(H) 74 - 99 mg/dL 11/16/2024 5:36 AM [facility] TOTAL PROTEIN 6.9 6.6 - 8.7 g/dL 11/16/2024 5:36 AM [facility] ALBUMIN 3.8 3.5 - 5.2 g/dL 11/16/2024 5:36 AM [facility] BILIRUBIN TOTAL 0.3 0.0 - 1.2 mg/dL 11/16/2024 5:36 AM [facility] ALKALINE PHOSPHATASE 117(H) 35 - 104 U/L 11/16/2024 5:36 AM [facility] AST 22 0 - 35 U/L 11/16/2024 5:36 AM [facility] ALT 25 0 - 35 U/L 11/16/2024 5:36 AM [facility] GFR >60 >=60 mL/min/1.7 3 sq meter 11/16/2024 5:36 AM [facility] Comment:eGFR calculated with 2020 CKD-EPI equation. Vegetarian diet, extremely high or low muscle mass, and may affect results. Cystatin C with Glomerular Filtration Rate is a suitable alternative for these patients. ANION GAP 9 5 - 20 mmol/L 11/16/2024 5:36 AM [facility] Blood BLOOD SPECIMEN / Unknown Collection / Unknown 11/16/2024 4:38 AM CDT 11/16/2024 5:08 AM T us Randolph Farooq MD CHEMISTRY ORDERABLES Final R esult [facility] CLIA # [id number] [address] [place] [id number] from Last 3 Months Insurance [facility] [place] [id number] Advance Directives For more information, please contact: [phone] * Full Code (Latest Code Status on File) Date Activated Date Inactivated Comments 02/22/2024 12:16 PM 02/23/2024 2:39 PM * Full Code Date Activated Date Inactivated Comments 02/21/2024 4:52 PM 02/22/2024 12:16 PM Care Teams Steel Roller Relationship Specialty Start Date End Date Xenia Iverson MD [address] [address] PCP - General Family Practice 05/16/23
--- OUTSIDE RECORDS SUMMARY | 2024-11-20 17:01 | XMS_ITS | Encounter Summary ---
Author Organization [facility] Address 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 [address] [facility] [address] [place] [address] Beth Calderon FNP [address] [facility] [place] [address] Blanka Malu Osorio, DO [address] [place] [address] 11/29/2024 9:30 AM CDT Telemed [facility] Telemedicine - [place] [address] [place] [address] Marc Abdul MD [address] [facility] [place] [address] 12/03/2024 9:40 AM CDT Office Visit [facility] [place] [address] [place] [address] [place] [address] Beth Calderon FNP [address] [facility] [place] [address] 12/16/2024 1:15 PM CDT Appointment [facility] [address] [place] [address] Beth Calderon FNP [address] [facility] [place] [address] 01/01/2025 9:00 AM CDT Office Visit [facility] [place] [address] [place] [address] [place] [address] Beth Calderon FNP [address] [facility] [place] [address] 01/14/2025 3:00 PM RUBBER BALL FINISHER Telemed [facility] - [place] [address] [facility] [address] [place] [phone] Mouna Reagan NP [address] [place] [address] documented as of this encounter Visit Diagnoses Not on filedocumented in this encounter Additional Health Concerns Assessment Noted Time PHQ-9 Depression Total Score: 4 03/15/19 25 9:39 AM RUBBER BALL FINISHER documented as of this encounter Care Teams Customer Marketing Manager Relationship Specialty Start Date End Date Xenia Iverson MD [address] [facility] [address] [place] [address] PCP - General Family Practice 05/16/23 documented as of this encounter
--- OUTSIDE RECORDS SUMMARY | 2024-11-20 17:01 | XMS_ITS | Clinical Summary ---
Author Organization [facility] Address Critical access hospital[address] [place] [address] Care Team Providers Care Credit Verifier Name Role Phone Kim Garces [facility] Primary Care Provider [phone] Allergies Active Allergy Reactions Criticality Noted Date Comments Amoxicillin Diarrhea Low 10/17/2012 Medications DULoxetine (CYMBALTA) 30 mg Capsule, Delayed Release(E.C.) Take 30 mg by mouth daily. Active metoprolol tartrate (LOPRESSOR) 50 mg tablet Take 50 mg by mouth 2 times daily. Active norgestimate-et hinyl estradioL 0.25 mg-35 mcg tablet Day 1: 3 pills AM. 2 pills bedtime Day 2: 2 pills AM 2 pills bedtime Day 3: 2 pills AM 1 pill bedtime Day 4 1 pill AM 1 pill bedtime Day 5 1 pill AM Day 6 or when bleeding stops, 1 pill daily for 1 week then hold pills for 3 days Then start second normal prescription 28 Tablet 12 1 Active norgestimate-et hinyl estradioL 0.25 mg-35 mcg tablet Take 1 Tablet by mouth daily. 28 Tablet 12 1 Active Active Problems Problem Noted Date Diagnosed Date Vascular headache 12/03/2019 Essential hypertension 12/03/2019 Dysfunctional uterine bleeding 12/03/2019 History of PCOS 12/03/2019 Immunizations Immunization Administration Dates Next Due (ADACEL/BOOSTRIX)(10 YR UP) TDAP VACCINE, 0.5ML, IM 10/23/2008 (M-M-R II/PRIORIX)(12 MO UP) MEASLES, MUMPS AND RUBELLA VIRUS VACCINE, 0.5 ML IM/SUBCUT 10/19/1999,06/20/1996 Dt Dtp Dtap Vaccine 10/19/1999, 7,1995,1995,1995 HIB, Unspecified Formulation 06/20/1996, 1995,1995,1995 Hepatitis B Vaccine 1995,1995,1994 IPV/OPV 10/19/1999, 6,1995,1995 Social History Tobacco Use Types Packs/Day Years Used Date Smoking Tobacco: Former Cigarettes Q uit: 07/14/2014 Smokeless Tobacco: Never Alcohol Use Standard Drinks/Week Comments No 0 (1 standard drink = 0.6 oz pur e alcohol) Comments No Sex and Gender Information Value Date Recorded Sex Assigned at Not on file 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 Gender Identity Not on file Sexual Orientation Not on file Occupation Industry Job Start Date Job End Date Not on file Not on file Not on file Not on file Last Filed Vital Signs Vital Sign Reading Time Taken Comments Blood Pressure 150/74 06/24/2020 6:35 PM CDT Pulse 80 06/24/2020 6:35 PM CDT Temperature 36.4 C (97.5 F) 06/24/2020 4:49 PM CDT Respiratory Rate 18 06/24/2020 6:35 PM CDT Oxygen Saturation 100% 06/24/2020 6:35 PM CDT Inhaled Oxygen Concentration - - Weight 155.1 kg (342 lb) 06/24/2020 4:49 PM CDT Height 176.5 cm (5' 9.5 ) 06/24/2020 4:49 PM CDT Body Mass Index 49.78 06/24/2020 4:49 PM CDT Plan of Treatment Health Maintenance Due Date Last Done Comments CERVICAL CANCER SCREENING 01/18/2016 HPV/Cotest (21-29) 01/18/2016 PAP SMEAR 01/18/2016 DTAP/TDAP/TD VACCINES (7 - T d or Tdap) 10/23/2018 10/23/2008, 10/19/1999, 06/20/1996, Additional history exists HPV VACCINES (1 - 3-dose SCD M series) 2022 INFLUENZA VACCINE (#1) 2024 HEPATITIS B VACCINES Completed 1995, 1995, 1995 Care Teams Credit Verifier Relationship Specialty Start Date End Date Kim Garces FNP [facility] [place] [address] PCP - General NURSE PRACTITIONER 07/14/16
--- OUTSIDE RECORDS SUMMARY | 2024-11-20 17:01 | XMS_ITS | Encounter Summary ---
Author Organization [facility] Address 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 Mere Fournier, [facility] Cardiology [facility], [facility] documented in this encounter Plan of Treatment Upcoming Encounters Date Type Department Care Team (Late st Contact Info) Description 11/27/2024 11:00 AM CDT Office Visit [facility] [address] [place] [phone] Beth Calderon FNP [address] [place] [address] Malu Moscoso DO [address] [place] [phone] 11/29/2024 9:30 AM CDT Telemed [facility] Telemedicine - [place] [address] [place] [phone] Marc Abdul MD [address] [place] [phone] 12/03/2024 9:40 AM CDT Office Visit [facility] Family Medicine [address] [address] Beth Calderon FNP [address] [facility] [place] [phone] 12/16/2024 1:15 PM CDT Appointment [facility] View [address] [facility] [address] [place] [phone] Kvng Beth, TEST DESKMAN [address] [facility] [place] [address] 01/01/2025 9:00 AM CDT Office Visit [facility] Family [facility] [place] [address] [facility] [place] [address] [facility] [place] [address] Beth Calderon, [facility] [address] [facility] [place] [address] 01/14/2025 3:00 PM HOSPICE AIDE Telemed [facility] [place] [address] [facility] [address] [place] [phone] Mouna Reagan NP [address] [place] [address] documented as of this encounter Visit Diagnoses Not on filedocumented in this encounter Additional Health Concerns Assessment Noted Time PHQ-9 Depression Total Score: 4 03/15/19 25 9:39 AM HOSPICE AIDE documented as of this encounter Care Teams Bulldozer Operator Relationship Specialty Start Date End Date Xenia Iverson MD [address] [place] [phone] PCP - General Family Practice 05/16/23 documented as of this encounter
--- OUTSIDE RECORDS SUMMARY | 2024-11-20 17:02 | XMS_ITS | Encounter Summary ---
Author Organization [facility] Address [address] [place] [address] Care Team Providers Care Key Punch Teacher Name Role Phone Kim Garces Primary Care Provider [phone] Encounter Details Date Type Department Care Team (Latest Contact Info) Description 05/19/2000 Outpatient Historical [facility] 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 Gender Identity Not on file Sexual Orientation Not on file documented as of this encounter Plan of Treatment Not on file documented as of this encounter Visit Diagnoses Diagnosis Hypertrophy tonsils/adenoids- Primary Hypertrophy of tonsil with adenoids Chronic tonsillitis and adenoiditis(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
--- OUTSIDE RECORDS SUMMARY | 2024-11-20 17:02 | XMS_ITS | Encounter Summary ---
Author Organization [facility] Address [address] [place] [address] Care Team Providers Care Occupational Health Professional Name Role Phone Xenai Iverson MD Primary Care Provider [phone] Encounter Details Date Type Department Care Team [...] on file Legal Sex Female 2:20 AM CONTRACT WRITER Gender Identity Not on file Sexual Orientation Not on file documented as of this encounter Plan of Treatment Upcoming Encounters Date Type Department Care Team (Late st Contact Info) Description 11/27/2024 11:00 AM CDT Office Visit [facility] [address] [facility] [address] [place] [phone] Beth Calderon FNP [address] [place] [address] Blanka Malu Osorio, DO [address] [place] [address] 11/29/2024 9:30 AM CDT Telemed [facility] Telemedicine - [place] [address] [place] [phone] Marc Abdul MD [address] [facility] [phone] 12/03/2024 9:40 AM CDT Office Visit [facility] [place] [address] [place] [address] [place] [address] Beth Calderon FNP [address] [place] [address] 12/16/2024 1:15 PM CDT Appointment [facility] View [address] [place] [phone] Beth Calderon FNP [address] [place] [address] 01/01/2025 9:00 AM CDT Office Visit [facility] [place] [address] [place] [address] [place] [address] Beth Calderon FNP [address] [place] [address] 01/14/2025 3:00 PM CONTRACT WRITER Telemed [facility] [place] [address] [facility] [address] [place] [phone] Mouna Reagan NP [address] [place] [address] documented as of this encounter Visit Diagnoses Not on filedocumented in this encounter Additional Health Concerns Assessment Noted Time PHQ-9 Depression Total Score: 4 03/15/19 25 9:39 AM CONTRACT WRITER documented as of this encounter Care Teams Occupational Health Professional Relationship Specialty Start Date End Date Xenia Iverson MD [address] [facility] [address] [place] [phone] PCP - General Family Practice 05/16/23 documented as of this encounter
--- OUTSIDE RECORDS SUMMARY | 2024-11-20 17:02 | XMS_ITS | Encounter Summary ---
Author Organization [facility] Address [address] [place] [address] Care Team Providers Care Microbiology Laboratory Manager Name Role Phone Kim Garces Primary Care Provider [phone] Encounter Details Date Type Department Care Team (Late st Contact Info) Description 02/03/2008 Outpatient Historical [facility] [address] 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
--- OUTSIDE RECORDS SUMMARY | 2024-11-20 17:02 | XMS_ITS | Encounter Summary ---
Author Organization [facility] Address [address] [place] [address] Care Team Providers Care Director Of Neurology Name Role Phone Xenia Iverson MD Primary Care Provider [phone] Encounter Details Date Type Department Care Team [...] on file Legal Sex Female 2:20 AM LOTTERY MANAGER Gender Identity Not on file Sexual Orientation Not on file documented as of this encounter Plan of Treatment Upcoming Encounters Date Type Department Care Team (Late st Contact Info) Description 11/27/2024 11:00 AM CDT Office Visit [facility] [address] [facility] [address] [place] [phone] Beth Calderon FNP [address] [facility] [place] [address] Blanka Malu Osorio, DO [address] [place] [address] 11/29/2024 9:30 AM CDT Telemed [facility] Telemedicine - [place] [address] [place] [phone] Marc Abdul MD [address] [facility] [place] [phone] 12/03/2024 9:40 AM CDT Office Visit [facility] [place] [address] [place] [address] [place] [address] Beth Calderon FNP [address] [facility] [place] [address] 12/16/2024 1:15 PM CDT Appointment [facility] View [address] [place] [address] Beth Calderon FNP [address] [facility] [place] [address] 01/01/2025 9:00 AM CDT Office Visit [facility] [place] [address] [place] [address] [place] [address] Beth Calderon FNP [address] [facility] [place] [phone] 01/14/2025 3:00 PM LOTTERY MANAGER Telemed [facility] [place] [address] [facility] [address] [place] [phone] Mouna Reagan NP [address] [place] [address] documented as of this encounter Visit Diagnoses Not on filedocumented in this encounter Additional Health Concerns Assessment Noted Time PHQ-9 Depression Total Score: 4 03/15/19 25 9:39 AM LOTTERY MANAGER documented as of this encounter Care Teams Director Of Neurology Relationship Specialty Start Date End Date Xenia Iverson MD [address] [facility] [address] [place] [phone] PCP - General Family Practice 05/16/23 documented as of this encounter
--- OUTSIDE RECORDS SUMMARY | 2024-11-20 17:02 | XMS_ITS | Encounter Summary ---
Author Organization [facility] Address [address] [place] [address] Care Team Providers Care Waist Presser Name Role Phone Kim Garces Primary Care Provider Encounter Details Date Type Department Care Team (Latest Contact Info) Description 06/04/2003 Outpatient Historical [facility] Family Medicine- [place] [address] [place] [address] Govidn Rubio MD [address] [phone] ACUTE PHARYNGITIS (Primary Dx); ACUTE SINUSITIS NOS Social History Tobacco Use Types Packs/Day Years Used Date Smoking Tobacco: Never Assessed Comments Unknown Sex and Gender Information Value Date Recorded Sex Assigned at Not on file Legal Sex Female 3: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
--- OUTSIDE RECORDS SUMMARY | 2024-11-20 17:02 | XMS_ITS | Encounter Summary ---
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); Dysfunct eustachian tube Social History Tobacco Use Types Packs/Day Years Used Date Smoking Tobacco: Never Assessed Comments Unknown Sex and Gender Information Value Date Recorded Sex Assigned at Not on file Legal Sex Female 3:29 AM SERVICE COORDINATOR ELDERLY FACILITY Gender Identity Not on file Sexual Orientation Not on file documented as of this encounter Plan of Treatment Not on file documented as of this encounter Visit Diagnoses Diagnosis Chronic tonsillitis- Primary Chronic tonsillitis and adenoiditis(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
--- OUTSIDE RECORDS SUMMARY | 2024-11-20 17:02 | XMS_ITS | Encounter Summary ---
Author Organization [facility] Address [address] [place] [address] Care Team Providers Care Spine Nurse Name Role Phone Kim Garces Katerine [facility] Primary Care Provider [phone] Encounter Details Date Type Department Care Team (Late st Contact Info) Description 08/11/2014 Lab Requisition [facility] [place] [address] [place] [address] Lc Ahumada DO NO ADDRESS ON FILE Social History Tobacco Use Types Packs/Day Years Used Date Smoking Tobacco: Every Day Cigarettes Alcohol Use Standard Drinks/Week Comments No 0 (1 standard drink = 0.6 oz pur e alcohol) Comments No Sex and Gender Information Value Date Recorded Sex Assigned at Not on file Legal Sex Female 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 Gender Identity Not on file Sexual Orientation Not on file Occupation Industry Job Start Date Job End Date Not on file Not on file Not on file Not on file documented as of this encounter Plan of Treatment Not on file documented as of this encounter Procedures Procedure Name Priority Date/Time Associated Diagnosis Comments TSH Routine 08/11/2014 9:00 PM CDT BASIC METABOLIC PANEL Routine 08/11/2014 9:00 PM CDT documented in this encounter Results * TSH (08/11/2014 9:00 PM CDT) TSH 2.04 0.30 - 4.80 uIU/mL 08/12/2014 1:06 AM CDT [facility] Blood 08/11/2014 9:00 PM CDT 08/11/2014 11:44 PM CDT us Lc Ahumada DO CHEMISTRY ORDERABLES Final R esult [facility] CLIA # [id number] [address] [place] [address] * (ABNORMAL) BASIC METABOLIC PANEL (08/11/2014 9:00 PM CDT) SODIUM 138 136 - 145 mmol/L 08/12/2014 1:06 AM [facility] POTASSIUM 3.9 3.5 - 5.1 mmol/L 08/12/2014 1:06 AM [facility] CHLORIDE 102 98 - 107 mmol/L 08/12/2014 1:06 AM [facility] CO2 26 21 - 32 mmol/L 08/12/2014 1:06 AM [facility] CALCIUM 8.5 8.5 - 10.1 mg/dL 08/12/2014 1:06 AM [facility] BUN 6(L) 7 - 18 mg/dL 08/12/2014 1:06 AM [facility] CREATININE 0.62 0.60 - 1.30 mg/dL 08/12/2014 1:06 AM [facility] GLUCOSE 98 74 - 106 mg/dL 08/12/2014 1:06 AM [facility] [employer] [facility] GFR >60 >=60 mL/min/1.7 3 sq meter 08/12/2014 1:06 AM [facility] [employer] [facility] Comment: eGFR has not been validated for use in the elderly (> 70 years of age), women, patients with serious co-morbid conditions, or persons with extremes of body size or muscle mass and should also be interpreted with caution in patients with acute kidney failure, dialysis dependent patients, patients reporting exceptional dietary intake (e.g. vegetarian diet, high protein diets, creatine supplementation), and patients with severe liver disease. Based on National Kidney Disease Education Program If patient is , please refer to the GFR result. GFR, >60 >=60 mL/min/1.7 3 sq meter 08/12/2014 1:06 AM CDT [facility] [place] ANION GAP 10(L) 12 - 20 mmol/L 08/12/2014 1:06 AM CDT [facility] [place] Blood 08/11/2014 9:00 PM CDT 08/11/2014 11:44 PM CDT us Lc Ahumada DO CHEMISTRY ORDERABLES Final R esult [facility] [place] CLIA # [id number] [address] [place] [address] documented in this encounter Visit Diagnoses Not on filedocumented in this encounter Care Teams Spine Nurse Relationship Specialty Start Date End Date Kim Garces FNP [address] [place] [address] PCP - General NURSE PRACTITIONER 07/14/16 documented as of this encounter
--- OUTSIDE RECORDS SUMMARY | 2024-11-20 17:02 | XMS_ITS | Encounter Summary ---
Author Organization [facility] Address [address] [place] [address] Care Team Providers Care Orchid Superintendent Name Role Phone GarcesKim leggett Katerine [facility] Primary Care Provider Encounter Details Date Type Department Care Team (Late st Contact Info) Description 12/27/2013 Ancillary Orders [facility] Admitting [address] [place] [address] Jojo Funes, [facility] [address] [place] [address] Shortness of breath (Primary Dx); Hypoxemia Social History Tobacco Use Types Packs/Day Years Used Date Smoking Tobacco: Every Day Cigarettes Alcohol Use Standard Drinks/Week Comments No 0 (1 standard drink = 0.6 oz pur e alcohol) Comments No Sex and Gender Information Value Date Recorded Sex Assigned at Not on file Legal Sex Female 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 AM 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 Gender Identity Not on file Sexual Orientation Not on file Occupation Industry Job Start Date Job End Date Not on file Not on file Not on file Not on file documented as of this encounter Plan of Treatment Not on file documented as of this encounter Results * XR CHEST PA AND LATERAL (12/27/2013 12:56 PM CDT) Anatomical Region Laterality Modality Chest Computed Radiogr aphy 12/27/2013 12:5 1 PM CDT Narrative 12/27/2013 5:54 PM CDT PROCEDURE XR CHEST, 2 views, 27 December 2013 COMPARISON Current: PA and lateral chest Prior: PA and lateral chest, 21 November 2013 DESCRIPTION Frontal view of the chest shows no infiltrate or atelectasis and the cardiomediastinal silhouette appears normal. Inspiration is slightly improved as compared to the previous study. There study limitation due to patient habitus. On the lateral view, no infiltrate or spine sign is seen. Costophrenic angles are clear of effusion posteriorly. IMPRESSION no acute infiltrate or interval change seen Procedure Note Amilcar Renner MD - 12/27/2013 PROCEDURE XR CHEST, 2 views, 27 December 2013 COMPARISON Current: PA and lateral chest Prior: PA and lateral chest, 21 November 2013 DESCRIPTION Frontal view of the chest shows no infiltrate or atelectasis and the cardiomediastinal silhouette appears normal. Inspiration is slightly improved as compared to the previous study. There study limitation due to patient habitus. On the lateral view, no infiltrate or spine sign is seen. Costophrenic angles are clear of effusion posteriorly. IMPRESSION no acute infiltrate or interval change seen [facility] ORDERABLES Final Result documented in this encounter Visit Diagnoses Diagnosis Shortness of breath- Primary Hypoxemia Shortness of breath Hypoxemia documented in this encounter Care Teams Orchid Superintendent Relationship Specialty Start Date End Date Kim Garces FNP [address] [place] [address] PCP - General NURSE PRACTITIONER 07/14/16 documented as of this encounter
--- OUTSIDE RECORDS SUMMARY | 2024-11-20 17:02 | XMS_ITS | Encounter Summary ---
Author Organization [facility] Address [address] [place] [address] Care Team Providers Care Salvage Clerk Name Role Phone Kim Garces Primary Care Provider [phone] Encounter Details Date Type Department Care Team (Latest Contact Info) Description 01/27/2004 Outpatient Historical [facility] Family Medicine- [place] [address] [place] [address] Mateusz Le NP NO ADDRESS ON FILE OTITIS MEDIA NOS (Primary Dx); ACUTE PHARYNGITIS Social History Tobacco Use Types Packs/Day Years Used Date Smoking Tobacco: Never Assessed Comments Unknown Sex and Gender Information Value Date Recorded Sex Assigned at Not on file Legal 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
--- OUTSIDE RECORDS SUMMARY | 2024-11-20 17:02 | XMS_ITS | Encounter Summary ---
Author Organization [facility] Address [address] [place] [address] Care Team Providers Care Marketing Administrative Assistant Name Role Phone Kim Garces Primary Care Provider Encounter Details Date Type Department Care Team (Latest Contact Info) Description 06/03/2003 Outpatient Historical [facility] Family Medicine- [place] [address] [place] [place] [address] Govind Rubio MD [address] [phone] ACUTE PHARYNGITIS (Primary Dx); FEVER Social History Tobacco Use Types Packs/Day Years Used Date Smoking Tobacco: Never Assessed Comments Unknown Sex and Gender Information Value Date Recorded Sex Assigned at Not on file Legal Sex Female 3:29 AM EMPLOYMENT ADVISOR Gender Identity Not on file Sexual Orientation Not on file documented as of this encounter Plan of Treatment Not on file documented as of this encounter Visit Diagnoses Diagnosis Acute pharyngitis- Primary Fever and other physiologic disturbances of temperature regulation documented in this encounter Care Teams Marketing Administrative Assistant Relationship Specialty Start Date End Date Kim Garces FNP [address] [place] [address] PCP - General NURSE PRACTITIONER 07/14/16 documented as of this encounter
--- OUTSIDE RECORDS SUMMARY | 2024-11-20 17:02 | XMS_ITS | Encounter Summary ---
Author Organization [facility] Address [address] [place] [address] Care Team Providers Care Physician Compensation Analyst Name Role Phone Kim Garces Primary Care Provider Encounter Details Date Type Department Care Team (Latest Contact Info) Description 06/02/2000 Outpatient Historical [facility] [address] [place] 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
--- OUTSIDE RECORDS SUMMARY | 2024-11-20 17:02 | XMS_ITS | Encounter Summary ---
Author Organization [facility] Address [address] [place] [address] Care Team Providers Care Histology Supervisor Name Role Phone Kim Garces Primary Care Provider Encounter Details Date Type Department Care Team (Latest Contact Info) Description 04/27/2000 Outpatient Historical [facility] Ear, Nose and Throat [address] [place] 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
--- OUTSIDE RECORDS SUMMARY | 2024-11-20 17:02 | XMS_ITS | Encounter Summary ---
Author Organization [facility] Address [address] [place]: Epic Prelude ADT ANA MARAI JASSO [address] Care Team Providers Care Policy Intern Name Role Phone Xenia Iverson MD Primary Care Provider [phone] Encounter Details Date Type Department Care Team (Latest Contact Info) Description 11/16/2024 Travel Social History Tobacco Use Types Packs/Day Years [...] on file Legal Sex Female 2:20 AM INDEPENDENT MARKETING CONSULTANT Gender Identity Not on file Sexual Orientation Not on file documented as of this encounter Plan of Treatment Upcoming Encounters Date Type Department Care Team (Late st Contact Info) Description 11/27/2024 11:00 AM CDT Office Visit [facility] [address] [place] [address] Beth Calderon FNP [address] [facility] [place] [address] Blanka Maluscott Osorio, DO [address] [place] [address] 11/29/2024 9:30 AM CDT Telemed [facility] - [place] [address] [place] [address] Marc Abdul MD [address] [facility] [place] [phone] 12/03/2024 9:40 AM CDT Office Visit [facility] [place] [address] [place] [address] [place] [address] Beth Calderon FNP [address] [facility] [place] [address] 12/16/2024 1:15 PM CDT Appointment [facility] [address] [place] [address] Beth Calderon FNP [address] [facility] [place] [address] 01/01/2025 9:00 AM CDT Office Visit [facility] [place] [address] [place] [address] Beth Calderon FNP [address] [facility] [place] [address] 01/14/2025 3:00 PM INDEPENDENT MARKETING CONSULTANT Telemed [facility] - [place] [address] [place] [phone] Mouna Reagan, [place] [address] [place] [address] documented as of this encounter Visit Diagnoses Not on filedocumented in this encounter Additional Health Concerns Assessment Noted Time PHQ-9 Depression Total Score: 4 03/15/19 25 9:39 AM INDEPENDENT MARKETING CONSULTANT documented as of this encounter Care Teams Policy Intern Relationship Specialty Start Date End Date Xenia Iverson MD [address] [facility] [address] [place] [phone] PCP - General Family Practice 05/16/23 documented as of this encounter
[2024-11-20 17:06] VITALS: BP 159/119; PULSE 85; RESP 20; TEMP 36.7; O2SAT 97; BMI 59.3
--- NOTE | 2024-11-20 17:14 | ECG_ITS ---
[facility] Test Date: 2024-11-20 Pat Name: Nikia Rivera Department: Room: Gender: Female Concierge Receptionist: : 1995 Requested By: Louise Perea Order Number: [id number] Radha MD: He Conway M.D. Measurements Intervals [place] Rate: 84 P: 30 NM: 169 QRS: 48 QRSD: 90 T: 60 QT: 350 QTc: 416 Interpretive Statements SINUS RHYTHM Compared to ECG 10/14/2023 22:03:04 No significant changes Electronically Signed On 11-20-2024 22:26:22 CDT by He Conway M.D. [id number]
--- NOTE | 2024-11-20 17:14 | W.ED.CHESTPA ---
HPI - Chest Pain General: Chief Complaint: Chest Pain Stated Complaint: Chest pain sob and lower back pain Time Seen by Provider: 11/20/24 16:57 History of Present Illness: 29-year-old female with a history of morbid obesity, anemia, hypertension, PCOS, depression and anxiety who presents to the emergency room with chest pain. Says she has had a cough. She is been having fluctuating episodes of chest pain. She says she was told at another hospital that her proBNP was elevated and that she needed to see a wire preparation machine tender but she cannot get into a wire preparation machine tender until next week. She says her symptoms are getting worse. She is having more chest pain and shortness of breath with exertion. Related Data Home Medications ?Medication ?Instructions ?Recorded ?Confirmed sertraline 100 mg tablet 100 mg PO DAILY 05/23/22 05/20/24 albuterol sulfate 2.5 mg/3 mL 2.5 mg inhalation Q6H 05/20/24 05/20/24 (0.083 %) solution for nebulization albuterol sulfate 90 mcg/actuation 2 puff inhalation Q4H PRN 05/20/24 05/20/24 aerosol inhaler (Ventolin HFA) budesonide-formoterol HFA 80 1 inh inhalation BID 05/20/24 05/20/24 mcg-4.5 mcg/actuation aerosol inhaler buspirone 5 mg tablet 7.5 mg PO TID 05/20/24 05/20/24 famotidine 40 mg tablet 40 mg PO BID 05/20/24 05/20/24 folic acid 1 mg tablet 1 mg PO DAILY 05/20/24 05/20/24 lamotrigine 25 mg tablet 25 mg PO BID 05/20/24 05/20/24 Previous Rx's ?Medication ?Instructions ?Recorded metoprolol tartrate 50 mg tablet 50 mg PO BID 30 days #60 tabs 08/12/21 cephalexin 500 mg capsule 500 mg PO TID #30 caps 08/11/22 medroxyprogesterone 10 mg tablet 10 mg PO DAILY #10 tabs 08/11/22 (Provera) promethazine 25 mg tablet 25 mg PO Q6H PRN nausea and 02/16/24 vomiting #20 tabs ferrous gluconate 324 mg (37.5 mg 324 mg PO BID #120 tabs 05/20/24 iron) tablet clonidine HCl 0.1 mg tablet 0.1 mg PO DAILY #20 tabs 11/20/24 Allergies Allergy/AdvReac Type Severity Reaction Status Date / Time amoxicillin AdvReac Diarrhea Verified 11/20/24 17:09 Review of Systems Narrative: Constitutional symptoms: Negative except as documented in HPI. Skin symptoms: Negative except as documented in HPI. Eye symptoms: Negative except as documented in HPI. ENMT symptoms: Negative except as documented in HPI. Respiratory symptoms: Negative except as documented in HPI. Cardiovascular symptoms: Negative except as documented in HPI. Gastrointestinal symptoms: Negative except as documented in HPI. Genitourinary symptoms: Negative except as documented in HPI. Musculoskeletal symptoms: Negative except as documented in HPI. Neurologic symptoms: Negative except as documented in HPI. Psychiatric symptoms: Negative except as documented in HPI. Endocrine symptoms: Negative except as documented in HPI. PFSH ED PFSH: Medical History (Updated 11/20/24 @ 18:30 by Louise Hinds MD) Iron deficiency anemia Endometriosis Essential hypertension PCOS (polycystic ovarian syndrome) Depression with anxiety Family History Family/Other Breast cancer maternal aunt Colon cancer maternal aunt Heart disease maternal aunt Father Diabetes Hypertension Mother Hypertension Heart disease Grandmother Heart disease maternal Grandfather Heart disease maternal Denies family history of Ovarian cancer Hypercholesteremia Uterine cancer Thyroid disease Stroke Social History Smoking and tobacco/nicotine status: current every day tobacco/nicotine user Physical Exam Narrative: EXAM NARRATIVE: General: Alert, no acute distress. Skin: Warm, dry. Head: Normocephalic, atraumatic. Neck: Supple, trachea midline. Eye: Extraocular movements are intact. Ears, nose, mouth and throat: mucosa moist. Cardiovascular: Regular, Normal peripheral perfusion. Respiratory: Lungs are clear to auscultation, respirations are non-labored, breath sounds are equal, Symmetrical chest wall expansion. Gastrointestinal: Soft, Nontender, Non distended Musculoskeletal: Normal ROM, no deformity. Neurological: Alert and oriented, No focal neurological deficit observed. Psychiatric: Cooperative, appropriate mood & affect. Course Vital Signs: Vital signs: Vital Signs Temperature 98.0 F 11/20/24 17:06 Pulse Rate 79 11/20/24 18:00 Respiratory Rate 20 H 11/20/24 17:06 Blood Pressure 173/105 11/20/24 18:00 Pulse Oximetry 95 11/20/24 18:00 Oxygen Delivery Me thod Room Air 11/20/24 18:00 MDM - Chest Pain Medical Decision Making Differential diagnosis for patient with chest pain includes but is not limited to and based on the above HPI, review of systems and physical exam: Pneumonia. unstable angina. angina. Acute coronary syndrome / UT. Pulmonary embolism. Costochondritis / musculoskeletal. Pleurisy. Pericarditis. Esophageal spasm. Pancreatis. Cholecystitis. Orders placed to evaluate differential diagnosis based on the above differential, HPI and physical exam EKG: Time 1703. Rate 84. Normal sinus rhythm, No ST-T changes, no ectopy, normal NV & QRS intervals, This was reviewed and interpreted by myself the ER physician at 1706 Chest x-ray: No acute process. No infiltrate. No pneumothorax. This was reviewed and interpreted by myself the emergency room physician. I also reviewed the radiology report. Lab Review: Laboratory results were reviewed and interpreted by myself the emergency room physician. Mild leukocytosis. No anemia. No renal failure. D-dimer is negative. Troponin is negative. I reviewed the patient's medical record. Reexamination: Patient remained stable. No increased work of breathing. No altered mental status. No focal motor deficits. Assessment and plan: Hypertension Noncardiac chest pain - Discharged home - Discussed plan with patient. Answered any questions. - Evaluation and treatment of this problem were appropriate in the emergency setting. Lab Data 11/20/24 17:28 11/20/24 17:28 Radiology Impressions Chest X-Ray 11/20/24 17:34 IMPRESSION: No acute finding. Laboratory Results WBC 11.45 10^3/uL (3.29-11.43) H 11/20/24: RBC 5.02 10^6/uL (3.85-5.65) 11/20/24 17: Hgb 11.80 g/dL (11.27-16.99) 11/20/24 17: Hct 38.8 % (36-47) 11/20/24: MCV 77.3 fl (85-98) L 11/20/24 17: MCH 23.5 pg (27-33) L 11/20/24 17: MCHC 30.4 g/dL (30-55) 11/20/24 17: RDW 16.1 % (12.1-15.1) H 11/20/24 17: Plt Count 252 10^3/cmm (157-399) 11/20/24 17: MPV 10.6 fL (7.4-10.4) H 11/20/24 17: Neut % (Auto) 67.5 % 11/20/24 17: Lymph % (Auto) 23.1 % 11/20/24 17: [place] % (Auto) 4.6 % 11/20/24 17: Eos % (Auto) 3.9 % 11/20/24: Baso % (Auto) 0.5 % 11/20/24: Neut # (Auto) 7.71 10^3/uL (1.8-7.7) H 11/20/24 17: Lymph # (Auto) 2.7 10^3/uL (0.8-4.8) 11/20/24 17: [place] # (Auto) 0.5 10^3/uL (0.2-0.9) 11/20/24: Eos # (Auto) 0.5 10^3/uL (0.0-0.8) 11/20/24: Baso # (Auto) 0.1 10^3/uL (0.0-0.1) 11/20/24: Nucleated RBC % (auto) 0 % 11/20/24: Nucleated RBCs # 0.0 /100WBC 11/20/24: D-Dimer <= 0.27 ug/mLFEU (0-0.59) 11/20/24 17: Sodium 136 mmol/L (136-145) 11/20/24 17: Potassium 4.2 mmol/L (3.5-5.1) 11/20/24 17: Chloride 103 mmol/L (98-107) 11/20/24 17: Carbon Dioxide 22 mmol/L (22-29) 11/20/24 17: Anion Gap 15.2 (5-19) 11/20/24 17: BUN 7 mg/dL (6-20) 11/20/24 17:28 Creatinine 0.6 mg/dL (0.5-0.9) 11/20/24 17:28 GFR Calculation 118.2 mL/min (90-130) 11/20/24 17:28 Glucose 138 mg/dL (65-115) H 11/20/24 17:28 Calculated Osmolality 282 mOsm/kg (285-295) L 11/20/24 17:28 Calcium 8.5 mg/dL (8.5-10.5) 11/20/24 17:28 Total Bilirubin 0.4 mg/dL (0.15-1.2) 11/20/24 17:28 AST 17 U/L (0-32) 11/20/24 17:28 ALT 18 U/L (0-33) 11/20/24 17:28 Alkaline Phosphatase 108 U/L (35-105) H 11/20/24 17:28 Troponin T Baseline < 6 ng/L (0-10) 11/20/24 17:28 NT-Pro-B Natriuret Pep 80 pg/mL (0-125) 11/20/24 17:28 Total Protein 7.0 g/dL (6.6-8.7) 11/20/24 17:28 Albumin 3.8 g/dL (3.5-5.2) 11/20/24 17:28 Globulin 3.2 g/dL (1.3-4.6) 11/20/24 17:28 All radiology interpretation(s) finalized by discharge Discharge Plan Discharge Patient Disposition: Home Clinical Impression: Non-cardiac chest pain, Hypertension Condition: Stable Prescriptions: New clonidine HCl 0.1 mg tablet 0.1 mg PO DAILY Qty: 20 0RF Rx Instructions: For Systolic >185 diastolic >100. If you are needing this more than once a day you need to follow with your primary care provider No Action sertraline 100 mg tablet 100 mg PO DAILY buspirone 5 mg tablet 7.5 mg PO TID albuterol sulfate 2.5 mg /3 mL (0.083 %) solution for nebulization 2.5 mg inhalation Q6H albuterol sulfate [Ventolin HFA] 90 mcg/actuation HFA aerosol inhaler 2 puff inhalation Q4H PRN budesonide-formoterol 80-4.5 mcg/actuation HFA aerosol inhaler 1 inh inhalation BID famotidine 40 mg tablet 40 mg PO BID lamotrigine 25 mg tablet 25 mg PO BID folic acid 1 mg tablet 1 mg PO DAILY ferrous gluconate 324 mg (37.5 mg iron) tablet 324 mg PO BID Qty: 120 0RF metoprolol tartrate 50 mg tablet 50 mg PO BID 30 Days Qty: 60 5RF medroxyprogesterone [Provera] 10 mg tablet 10 mg PO DAILY Qty: 10 12RF cephalexin 500 mg capsule 500 mg PO TID Qty: 30 0RF promethazine 25 mg tablet 25 mg PO Q6H PRN (Reason: nausea and vomiting) Qty: 20 0RF Discharge Orders: Discharge ED (Routine); Ordered 11/20/24 Ordered By: Louise Hinds Referrals: Beth Calderon, STUDENT ADVISOR [Primary Care Provider, Family Practice] Discharge Diet: Usual diet Discharge Activity: Increase activity as tolerated Patient Instructions: Noncardiac Chest Pain (ED), Opioid Safety, Pain Management, Patient Portal & Jerome Instructions Activity Restrictions/Additional Instructions: Thank you for choosing [facility] for your healthcare needs today. You have been screened and evaluated and felt safe for discharge. Health conditions do change or evolve sometimes and as such it is important that you follow up with your Primary Doctor to be re checked, 3-5 days is a general good time frame for follow up. You are always welcome to return to the ED for re assessment if your symptoms are worsening or you have new concerns Print Language: Romanian Coding Level of Care Code ED Attending Urologist for Aydin Ybarra
[2024-11-20 17:34] LABS: Hematocrit 38.8 % (36-47); Hemoglobin 11.80 g/dL (11.27-16.99); Mean Corpuscular HGB Conc 30.4 g/dL (30-55); Mean Corpuscular Hemoglobin 23.5 pg (27-33); Mean Corpuscular Volume 77.3 fl (85-98); Nucleated Red Blood Cells % 0 %; Platelet Count 252 10^3/cmm (157-399); Red Blood Count 5.02 10^6/uL (3.85-5.65); White Blood Count 11.45 10^3/uL (3.29-11.43)
--- NOTE | 2024-11-20 17:34 | XRR_ITS ---
PROCEDURE INFORMATION: Exam: XR Chest Exam date and time: 11/20/2024 5:39 PM Age: 29 years old Clinical indication: Pain; Chest pressure; Additional info: Chest pain TECHNIQUE: Imaging protocol: Radiologic exam of the chest. Views: 1 view. COMPARISON: CR XR chest 1V portable [id number] 10/14/2023 10:02 PM FINDINGS: Lungs: Unremarkable. No consolidation. Pleural spaces: Unremarkable. No pleural effusion. No pneumothorax. Heart/Mediastinum: Unremarkable. No cardiomegaly. Bones/joints: Unremarkable. XR/XR chest 1V portable [id number] IMPRESSION: No acute finding.
[2024-11-20 17:35] VITALS: BP 157/91; PULSE 89; O2SAT 95
[2024-11-20 17:59] LABS: Troponin(5th) Baseline < 6 ng/L (0-10)
[2024-11-20 18:00] VITALS: BP 173/105; PULSE 79; O2SAT 95
[2024-11-20 18:11] LABS: Alanine Aminotransferase 18 U/L (0-33); Albumin Level 3.8 g/dL (3.5-5.2); Alkaline Phosphatase 108 U/L (35-105); Blood Urea Nitrogen 7 mg/dL (6-20); Calcium 8.5 mg/dL (8.5-10.5); Carbon Dioxide 22 mmol/L (22-29); Chloride 103 mmol/L (98-107); Creatinine Clr Calc Pharmacy 238.2783; Globulin 3.2 g/dL (1.3-4.6); Glucose 138 mg/dL (65-115); NT Pro B Type Natriuretic Pept 80 pg/mL (0-125); Osmolality Calculated 282 mOsm/kg (285-295); Sodium 136 mmol/L (136-145); Total Protein 7.0 g/dL (6.6-8.7)
[2024-11-20 18:15] LABS: Anion Gap 15.2 (5-19); Aspartate Amino Transferase 17 U/L (0-32); Potassium 4.2 mmol/L (3.5-5.1)
[2024-11-20 18:34] VITALS: BP 175/105
[2024-11-20 18:36] VITALS: BP 175/105; PULSE 88; O2SAT 97
== END 2024-11-20 18:38 | disposition home or self-care (01) ==
PROVIDERS: Emergency Provider Emergency Medicine; PCP Nurse Practitioner Family
DX: R07.89 Other chest pain (principal); I10 Essential (primary) hypertension; D50.9 Iron deficiency anemia, unspecified
CPT/HCPCS: 36415; 71045; 80053; 83880; 84484; 85025; 85378; 93005; 99285; J9999